=== PATIENT | female | born 1980 | race Caucasian/White ===

== ENCOUNTER 2016-04-24 12:31 | Emergency (ER) | payer MEDICAID ==
[~2016-04-24] VITALS: Ht 162.6 cm; Wt 124.5 kg
[~2016-04-24 12:31] MED LIST: HYDR-3011 PO; NAPR-260 PO; ONDA4TAB95 PO; PANT40TA4 PO; TRAM-40 PO; TRAM50TA2 PO
[2016-04-24 12:39] VITALS: Ht 162.6 cm; Wt 124.5 kg
[2016-04-24] MEDS ORDERED: ALBUTEROL 0.5% (NEB) 2.5 MG/0.5 ML AMP INH STA (15:08)
[2016-04-24] MEDS ORDERED: IPRATROPIUM (NEB) 0.5 MG/2.5 ML AMP INH STA (15:13)
[2016-04-24] MEDS ORDERED: predniSONE 20 MG TAB PO ONE (15:30)
--- NOTE | 2016-04-24 16:20 | RADRPT ---
PROCEDURE: Chest Radiograph. CLINICAL INDICATION: Cough TECHNIQUE: Single frontal chest radiograph. COMPARISON: Chest radiograph 11/16/2015 FINDINGS: The cardiomediastinal silhouette is within normal limits. No infiltrate or effusion is seen. Th e bones are intact. IMPRESSION: 1. Unremarkable chest radiograph. RPTAT: KK .Syd Del Angel MD, MD Date Time Electronically viewed and signed by .Syd Del Angel MD, on 04/24/2016 16:20 .B/
[2016-04-24] MEDS ORDERED: ALBU8.5H3 INH (17:37)
[2016-04-24] MEDS ORDERED: PRED20TA PO (17:37)
[2016-04-24] MEDS ORDERED: BENZ100C70 PO (17:37)
[2016-04-24] MEDS ORDERED: ELIM TOP (17:37)
[2016-04-24] MEDS ORDERED: BEN25 PO (17:50)
--- NOTE | 2016-04-24 17:50 | ERD ---
ER Documentation Chief Complaint Date/Time DATE: 04/24/16 TIME: 17:48 Chief Complaint CAME IN VIA INTAKE DUE TO FLU LIKE SYMPTOMS HPI 36-year-old female with a past medical history of thyroid problems presents to the ED complaining of fever, productive cough, body aches that started 3 days ago. Reports that she feels like she is wheezing. Denies any recent traveling. Denies any leg swelling. Denies any abdominal pain, chest pain, nausea, vomiting, diarrhea. States that at some point, she had some renal disease but has now resolved. Also reports that she has a itchy rash in the webs of her fingers, on her torso. Denies that other attacks have similar rashes. Denies any new use of soaps, detergents. Denies any exposure to pets or insects. Denies any smoking, alcohol use, drug use. ROS All systems reviewed and are negative except as per history of present illness. Medications Home Meds Active Scripts Diphenhydramine Hcl* (Benadryl*) 25 Mg Cap, 25 MG PO Q6, #30 CAP Prov:KRISTYN PERKINS PA-C 04/24/16 Permethrin* (Elimite*) 5% Cr, 1 APPLIC TOP ONCE, #2 TUB Leave cream on for 8 hours. Apply from the neck down to your toes. You may repeat applying the cream14 days after initial treatment if symptoms do not improve. Deje la crema en 8 horas. Aplicar desde el thad hasta los dedos del pie. Se puede repetir aplicando los cream14 d as despu s del tratamiento inicial si los s ntomas no mejoran. Prov:KRISTYN PERKINS PA-C 04/24/16 Benzonatate* (Tessalon Perle*) 100 Mg Capsule, 100 MG PO Q8H Y for COUGH, #20 CAP Prov:KRISTYN PERKINS PA-C 04/24/16 Albuterol Sulfate* (Proair HFA*) 8.5 Gm Hfa.aer.ad, 2 PUFF INH Q4, #1 INHALER Prov:KRISTYN PERKINS PA-C 04/24/16 Prednisone* (Prednisone*) 20 Mg Tab, 40 MG PO DAILY for 4 Days, TAB Prov:KRISTYN PERKINS PA-C 04/24/16 Naproxen* (Naprosyn*) 500 Mg Tablet, 500 MG PO BID Y for PAIN AND/OR INFLAMMATION, #20 TAB Prov:SKINNY PATEL PA-C 01/11/16 Tramadol HCl (Tramadol HCl) 50 Mg Tablet, 50 MG PO Q6 Y for PAIN, #10 TAB Prov:SKINNY PATEL PA-C 01/11/16 Tramadol Hcl* (Ultram*) 50 Mg Tablet, 100 MG PO Q6H Y for PAIN, #20 TAB Prov:CALVIN SWEET NP 11/26/15 Pantoprazole* (Pantoprazole*) 40 Mg Tablet.dr, 40 MG PO BID@06,18 for 30 Days Prov:CALVIN SWEET NP 11/26/15 Hydroxyzine Hcl* (Hydroxyzine Hcl*) 25 Mg Tablet, 25 MG PO Q8H Y for ITCHING, # 15 TAB Prov:IVAN WAN DO 11/17/15 Reported Medications Ondansetron Hcl* (Ondansetron Hcl*) 4 Mg Tablet, 4 MG PO TID Y for NAUSEA AND OR VOMITING, TAB 11/20/15 Allergies Allergies: Coded Allergies: Penicillins (Verified Allergy, Unknown, swelling, 11/20/15) PMhx/Soc History of Surgery: Yes (appendectomy,hernia repair x2) Anesthesia Reaction: No (can't have epidural anethesia, only general anthesia) Hx Neurological Disorder: No Hx Respiratory Disorders: No Hx Cardiac Disorders: No Hx Psychiatric Problems: No Hx Miscellaneous Medical Probl: No Hx Alcohol Use: No Hx Substance Use: No Hx Tobacco Use: No Physical Exam Vitals Vital Signs Date Time Temp Pulse Resp B/P Pulse Ox O2 Delivery O2 Flow Rate FiO2 04/24/16 15:45 88 20 97 21 04/24/16 12:39 98.4 85 18 123/82 97 Physical Exam Const: Yun-jvo-cmuehoqyb, well-nourished. In no acute distress. Head: Atraumatic, normocephalic Eyes: Normal Conjunctiva without injection. No purulent discharge. PERRL. EOMI ENT: Normal external ear. Ear canal without erythema. Tympanic membrane pearly valdes without effusion or bulging. Nasal canal clear with normal turbinates. Moist oropharynx without tonsillar exudates. Non-erythematous pharynx. Uvula midline. No drooling. No trismus. Neck: Full range of motion. No meningismus. No cervical lymphadenopathy. Resp: Expiratory wheezing noted. No rhonchi, rales, or crackles. No accessory muscle use. No retractions. Cardio: Regular rate and rhythm. No murmurs, rubs or gallops. Abd: Soft, non tender, non distended. Normal bowel sounds. No palpable masses. No rebound tenderness. No guarding. Skin: No petechiae or rashes Back: No midline tenderness. No CVA tenderness. Ext: No cyanosis, or edema. Neur: Awake and alert. Psych: Normal Mood and Affect Results 24 hrs Current Medications Medications (Trade) Dose Ordered Sig/Kanwal Route PRN Reason Start Time Stop Time Status Last Admin Dose Admin Albuterol (Proventil 0.5% (Neb)) 5 mg ONCE STAT INH 04/24/16 15:08 04/24/16 15:12 DC 04/24/16 16:00 Ipratropium [place] (Atrovent 0.02% (Neb)) 1 mg ONCE STAT INH 04/24/16 15:13 04/24/16 15:15 DC 04/24/16 16:00 Prednisone (Prednisone) 60 mg ONCE ONCE PO 04/24/16 15:30 04/24/16 15:31 DC 04/24/16 15:35 Procedures/MDM This is a 36-year-old female with a past medical history of thyroid problems since the ED complaining of flulike symptoms. Patient also is wheezing. A breathing treatment consisting of 5 mg albuterol, 1 mg Atrovent, prednisone was ordered to further treat patient with improvement. Chest x-ray was ordered to further evaluate patient. PROCEDURE: Chest Radiograph. CLINICAL INDICATION: Cough TECHNIQUE: Single frontal chest radiograph. COMPARISON: Chest radiograph 11/16/2015 FINDINGS: The cardiomediastinal silhouette is within normal limits. No infiltrate or effusion is seen. The bones are intact. IMPRESSION: 1. Unremarkable chest radiograph. This patient presents to the ED with symptoms consistent with a viral acute upper respiratory infection with wheezing. Patient is afebrile and has normal vital signs. Patient's physical exam include lungs which were clear to auscultation and a normal pulse oximetry. There is a low suspicion for pneumonia , pneumothorax, pulmonary embolism, epiglottitis, otitis media, otitis externa, viral/strep pharyngitis, sinusitis, peritonsillar abscess, mastoiditis, retropharyngeal abscess, meningitis, sepsis, acute abdomen or other emergent conditions. Fluids, rest, and symptomatic treatment are recommended for the management of patient's symptoms. Patient's rash was consistent with possible scabies. Other differential diagnosis include but is not limited to allergic contact dermatitis, urticaria, insect bites, cutaneous candidiasis, eczema, tinea infection, erythema multiforme, psoriasis. Low suspicion for SJS/TEN, sepsis, cellulitis, necrotizing fascitis, or other emergent conditions. Discharge medications: Permethrin, Benadryl, Tessalon Perles, pro-air, Prednisone Follow up with primary care physician in 1-2 days. Instructed patient to return to the ED sooner for any worsening symptoms. Patient's questions were answered. Patient understood and agreed with discharge plan. Patient discharged stable. Departure Diagnosis: Primary Impression: Cough Additional Impression: Wheezing Condition: Stable Patient Instructions: Uri, Viral W/ Wheezing (Adult) Referrals: [facility] YOU HAVE RECEIVED A MEDICAL SCREENING EXAM AND THE RESULTS INDICATE THAT YOU DO NOT HAVE A CONDITION THAT REQUIRES URGENT TREATMENT IN THE EMERGENCY DEPARTMENT. FURTHER EVALUATION AND TREATMENT OF YOUR CONDITION CAN WAIT UNTIL YOU ARE SEEN IN YOUR DOCTORS OFFICE WITHIN THE NEXT 1-2 DAYS. IT IS YOUR RESPONSIBILITY TO MAKE AN APPOINTMENT FOR FOLOW-UP CARE. IF YOU HAVE A PRIMARY DOCTOR --you should call your primary doctor and schedule an appointment IF YOU DO NOT HAVE A PRIMARY DOCTOR YOU CAN CALL OUR PHYSICIAN REFERRAL HOTLINE AT IF YOU CAN NOT AFFORD TO SEE A PHYSICIAN YOU CAN CHOSE FROM THE FOLLOWING [facility] [address] [facility] [address] [facility] [address] [facility] [address] [facility]. [facility] [address] [facility]. [facility]. [address] [facility] [facility] YOU HAVE RECEIVED A MEDICAL SCREENING EXAM AND THE RESULTS INDICATE THAT YOU DO NOT HAVE A CONDITION THAT REQUIRES URGENT TREATMENT IN THE EMERGENCY DEPARTMENT. FURTHER EVALUATION AND TREATMENT OF YOUR CONDITION CAN WAIT UNTIL YOU ARE SEEN IN YOUR DOCTORS OFFICE WITHIN THE NEXT 1-2 DAYS. IT IS YOUR RESPONSIBILITY TO MAKE AN APPOINTMENT FOR FOLOW-UP CARE. IF YOU HAVE A PRIMARY DOCTOR --you should call your primary doctor and schedule and appointment IF YOU DO NOT HAVE A PRIMARY DOCTOR YOU CAN CALL OUR PHYSICIAN REFERRAL HOTLINE AT . IF YOU CAN NOT AFFORD TO SEE A PHYSICIAN YOU CAN CHOSE FROM THE FOLLOWING [facility] INSTITUTIONS: [facility] [address] [place] [address] [facility] [address] [place] [address] [facility] + [facility] [address] [place] [address] [facility]RGENT [facility]/SPECIALTIES Additional Instructions: Llame al doctor MAANA y jennifer jahaira FAHEEM PARA DENTRO DE 1-2 WILLIAMSON.Dgale a la secretaria que nosotros le instruimos hacer esta faheem.Avise o llame si mcpherson condicin se empeora antes de la faheem. Regresa aqui si peor o no mejor. KRISTYN PERKINS PA-C Apr 24, 2016 17:50
== END 2016-04-24 17:54 | disposition home or self-care (01) ==
LOC: FTE 12:31
DX: R05 Cough (principal); R06.2 Wheezing
CPT/HCPCS: 71010; 94644; J7512; Z7502; Z7610

== ENCOUNTER 2016-04-28 15:27 | Emergency (ER) | END 2016-04-28 17:52 | disposition home or self-care (01) | DX: J06.9 Acute upper respiratory infection, unspecified (principal) ==

== ENCOUNTER 2016-06-12 14:21 | Emergency (ER) | payer MEDICAID ==
[~2016-06-12] VITALS: Ht 165.1 cm; Wt 125.0 kg
[~2016-06-12 14:21] MED LIST changes: +ACET500C5 PO; +ALBU8.5H3 INH; +AZIT250T94 PO; +BEN25 PO; +BENZ100C70 PO; +ELIM TOP; +PRED20TA PO
[2016-06-12 14:25] VITALS: Ht 165.1 cm; Wt 125.0 kg
[2016-06-12] MEDS ORDERED: morphine 4 MG/ML VIAL IV STA (15:12)
[2016-06-12] MEDS ORDERED: ONDANSETRON 4 MG INJ IV STA ×2 (15:12→19:31)
[2016-06-12 16:08] LABS: ADD SCAN DIFF NO
[2016-06-12 16:10] LABS: BASOPHILS % 0.4 % (0.0-2.0); EOSINOPHILS # 0.1 10^3/ul (0.0-0.5); EOSINOPHILS % 0.8 % (0.0-7.0); HEMOGLOBIN 13.7 g/dl (12.0-16.0); LYMPHOCYTES # 1.7 10^3/ul (0.8-2.9); LYMPHOCYTES % 17.7 % (15.0-51.0); MEAN CORPUSCULAR HGB CONC 31.9 g/dl (32.0-37.0); MEAN CORPUSCULAR VOLUME 81.6 fl (82.0-101.0); MEAN PLATELET VOLUME 10.5 fl (7.4-10.4); MONOCYTE # 0.7 10^3/ul (0.3-0.9); MONOCYTES % 7.6 % (0.0-11.0); NEUTROPHIL # 6.9 10^3/ul (1.6-7.5); NEUTROPHILS % 73.2 % (39.0-77.0); PLATELET COUNT 277 10^3/UL (140-415); RED BLOOD COUNT 5.27 10^6/ul (4.20-5.40); RED CELL DISTRIBUTION WIDTH 14.2 % (11.5-14.5); WHITE BLOOD COUNT 9.5 10^3/ul (4.8-10.8)
[2016-06-12 16:25] LABS: INR 0.99; PROTIME 13.1 Sec (12.2-14.2)
--- NOTE | 2016-06-12 16:25 | RADRPT ---
PROCEDURE: US Abdomen (right upper quadrant). CLINICAL INDICATION: Right upper quadrant abdomen pain. TECHNIQUE: Multiple real-time longitudinal and transverse images of the right upper quadrant of th e abdomen were acquired utilizing a curved array transducer. Images were reviewed on a high-resoluti on PACS workstation. COMPARISON: None FINDINGS: The liver is enlarged and diffusely increased in echogenicity. There is no focal hepatic lesion. Color Doppler and pulsed Doppler sonography demonstrate normal ant egrade flow in the portal vein. Gallstones are present in the gallbladder. There is no gallbladder wall thickening or fluid around the gallbladder. The bile ducts are normal with the common bile duct measuring 3.1 mm in diameter. The pancreas is not visualized due to overlying bowel gas. No free fluid is present. The right kidney measures 11.6 cm. There is normal echogenicity of the right kidney. There is no perinephric fluid collection. No hydronephrosis, mass, or calculus is seen. IMPRESSION: 1. Hepatomegaly. 2. Fatty metamorphosis of the liver. 3. Gallstones in the gallbladder. No evidence of cholecystitis. 4. Pancreas not visualized. 5. Otherwise unremarkable right upper quadrant abdomen ultrasound. RPTAT: QQ .Gamal Sorto MD, MD Date Time Electronically viewed and signed by .Gamal Sorto MD, on 06/12/2016 16:25 .R/
[2016-06-12 16:26] LABS: PARTIAL THROMBOPLASTIN TIME 30.6 Sec (25.0-35.0)
[2016-06-12 16:33] LABS: ALBUMIN 4.4 g/dl (3.3-4.9)
[2016-06-12 16:36] LABS: BILIRUBIN,INDIRECT 1.2 mg/dl (0-1.1); BILIRUBIN,TOTAL 1.2 mg/dl (0.2-1.3); CREATININE 0.79 mg/dl (0.44-1.00)
[2016-06-12 16:37] LABS: ALBUMIN/GLOBULIN RATIO 1.18; CALCIUM 9.4 mg/dl (8.4-10.2); TOTAL PROTEIN 8.1 g/dl (6.1-8.1)
[2016-06-12] MEDS ORDERED: SOD CHLORIDE 0.9% 100 ML ONE (16:59)
[2016-06-12] MEDS ORDERED: IOHEXOL 300MG/ML 150 ML BTL ONE (16:59)
[2016-06-12 17:14] LABS: ADD UMIC YES; URINE BILIRUBIN (Dip) NEGATIVE (NEGATIVE); URINE BLOOD (Dip) NEGATIVE (NEGATIVE); URINE COLOR LT. YELLOW (YELLOW); URINE GLUCOSE (Dip) NEGATIVE (NEGATIVE); URINE KETONES (Dip) NEGATIVE (NEGATIVE); URINE LEUKOCYTE ESTERASE (Dip) TRACE (NEGATIVE); URINE NITRITE (Dip) NEGATIVE (NEGATIVE); URINE TOTAL PROTEIN (Dip) NEGATIVE (NEGATIVE); URINE UROBILINOGEN (Dip) 0.2 E.U./dL (0.1-1.0)
--- NOTE | 2016-06-12 17:22 | ERD ---
ER Documentation Chief Complaint Date/Time DATE: 06/12/16 TIME: 17:18 Chief Complaint RUQ ABDOMINAL WITH N/V HPI This patient is a 36-year-old female with past medical history of appendicitis with appendectomy, gallstones, hernia, ovarian tumors presenting to the emergency department for right upper quadrant pain ongoing intermittently for the past 7 days. The patient went to [facility] and was seen in the ER 4 days ago diagnosed with gallstones. There is no cholecystitis at that time. The patient has had intermittent fevers, 2 episodes of vomiting today, but no other symptoms reported. The patient has been taking [place] at home with mild relief of symptoms. ROS All systems reviewed and are negative except as per history of present illness. Medications Home Meds Active Scripts Ondansetron (Ondansetron Odt) 4 Mg Tab.rapdis, 4 MG PO Q6H Y for NAUSEA AND/OR VOMITING, #10 TAB Prov:TRINIDAD WILLIS PA-C 06/12/16 Dicyclomine Hcl* (Bentyl*) 10 Mg Capsule, 10 MG PO BID, #20 CAP Prov:TRINIDAD WILLIS PA-C 06/12/16 Acetaminophen* (Tylophen*) 500 Mg Capsule, 1 CAP PO Q6H Y for PAIN AND OR ELEVATED TEMP, #15 CAP Prov:SANCHEZ CASTELLANOS MD 04/28/16 Azithromycin* (Zithromax*) 250 Mg Tablet, 250 MG PO .ZPACK DIRECTED, #6 TAB TAKE 500 MG (2 TABS) THE FIRST DAY THEN 250 MG (1 TAB) DAYS 2-5 Prov:SANCHEZ CASTELLANOS MD 04/28/16 Diphenhydramine Hcl* (Benadryl*) 25 Mg Cap, 25 MG PO Q6, #30 CAP Prov:KRISTYN PERKINS PA-C 04/24/16 Permethrin* (Elimite*) 5% Cr, 1 APPLIC TOP ONCE, #2 TUB Leave cream on for 8 hours. Apply from the neck down to your toes. You may repeat applying the cream14 days after initial treatment if symptoms do not improve. Deje la crema en 8 horas. Aplicar desde el thad hasta los dedos del pie. Se puede repetir aplicando los cream14 d as despu s del tratamiento inicial si los s ntomas no mejoran. Prov:KRISTYN PERKINS PA-C 04/24/16 Benzonatate* (Tessalon Perle*) 100 Mg Capsule, 100 MG PO Q8H Y for COUGH, #20 CAP Prov:KRISTYN PERKINS PA-C 04/24/16 Albuterol Sulfate* (Proair HFA*) 8.5 Gm Hfa.aer.ad, 2 PUFF INH Q4, #1 INHALER Prov:KRISTYN PERKINS PA-C 04/24/16 Prednisone* (Prednisone*) 20 Mg Tab, 40 MG PO DAILY for 4 Days, TAB Prov:KRISTYN PERKINS PA-C 04/24/16 Naproxen* (Naprosyn*) 500 Mg Tablet, 500 MG PO BID Y for PAIN AND/OR INFLAMMATION, #20 TAB Prov:SKINNY PATEL PA-C 01/11/16 Tramadol HCl (Tramadol HCl) 50 Mg Tablet, 50 MG PO Q6 Y for PAIN, #10 TAB Prov:SKINNY PATEL PA-C 01/11/16 Tramadol Hcl* (Ultram*) 50 Mg Tablet, 100 MG PO Q6H Y for PAIN, #20 TAB Prov:CALVIN SWEET NP 11/26/15 Pantoprazole* (Pantoprazole*) 40 Mg Tablet.dr, 40 MG PO BID@06,18 for 30 Days Prov:CALVIN SWEET NP 11/26/15 Hydroxyzine Hcl* (Hydroxyzine Hcl*) 25 Mg Tablet, 25 MG PO Q8H Y for ITCHING, # 15 TAB Prov:IVAN WAN DO 11/17/15 Reported Medications Ondansetron Hcl* (Ondansetron Hcl*) 4 Mg Tablet, 4 MG PO TID Y for NAUSEA AND OR VOMITING, TAB 11/20/15 Allergies Allergies: Coded Allergies: Penicillins (Verified Allergy, Unknown, swelling, 06/12/16) PMhx/Soc History of Surgery: Yes (appendectomy,hernia repair x2) Anesthesia Reaction: No (can't have epidural anethesia, only general anthesia) Hx Neurological Disorder: No Hx Respiratory Disorders: No Hx Cardiac Disorders: No Hx Psychiatric Problems: No Hx Miscellaneous Medical Probl: No Hx Alcohol Use: No Hx Substance Use: No Hx Tobacco Use: No Smoking Status: Never smoker FmHx Noncontributory for chief complaint Physical Exam Vitals Vital Signs Date Time Temp Pulse Resp B/P Pulse Ox O2 Delivery O2 Flow Rate FiO2 06/12/16 18:44 62 17 108/61 98 Room Air 06/12/16 14:25 99.5 86 20 127/73 96 Physical Exam Const: The patient appears to be in acute pain. Head: Atraumatic Eyes: Normal Conjunctiva ENT: Normal External Ears, Nose and Mouth. Neck: Full range of motion..~ No meningismus. Resp: Clear to auscultation bilaterally Cardio: Regular rate and rhythm, no murmurs Abd: Morbidly obese abdomen, soft, diffuse tenderness to palpation but no rebound tenderness or guarding, non distended. Normal bowel sounds Skin: No petechiae or rashes Back: No midline or flank tenderness Ext: No cyanosis, or edema Neur: Awake and alert Psych: Normal Mood and Affect Result Diagram: 06/12/16 1540 06/12/16 1540 Results 24 hrs Laboratory Tests Test 06/12/16 15:40 06/12/16 16:26 White Blood Count 9.510^3/ul Red Blood Count 5.2710^6/ul Hemoglobin 13.7g/dl Hematocrit 43.0% Mean Corpuscular Volume 81.6fl Mean Corpuscular Hemoglobin 26.0pg Mean Corpuscular Hemoglobin Concent 31.9g/dl Red Cell Distribution Width 14.2% Platelet Count 80096^3/UL Mean Platelet Volume 10.5fl Neutrophils % 73.2% Lymphocytes % 17.7% Monocytes % 7.6% Eosinophils % 0.8% Basophils % 0.4% Nucleated Red Blood Cells % 0.0/100WBC Neutrophils # 6.910^3/ul Lymphocytes # 1.710^3/ul Monocytes # 0.710^3/ul Eosinophils # 0.110^3/ul Basophils # 0.010^3/ul Nucleated Red Blood Cells # 0.010^3/ul Prothrombin Time 13.1Sec Prothrombin Time Ratio 1.0 INR International Normalized Ratio 0.99 Activated Partial Thromboplast Time 30.6Sec Sodium Level 140mmol/L Potassium Level 4.0mmol/L Chloride Level 105mmol/L Carbon Dioxide Level 23mmol/L Anion Gap 16 Blood Urea Nitrogen 14mg/dl Creatinine 0.79mg/dl Glucose Level 92mg/dl Calcium Level 9.4mg/dl Total Bilirubin 1.2mg/dl Direct Bilirubin 0.00mg/dl Indirect Bilirubin 1.2mg/dl Aspartate Amino Transf (AST/SGOT) 91IU/L Alanine Aminotransferase (ALT/SGPT) 112IU/L Alkaline Phosphatase 98IU/L Total Protein 8.1g/dl Albumin 4.4g/dl Globulin 3.70g/dl Albumin/Globulin Ratio 1.18 Lipase 68U/L Urine Color LT. YELLOW Urine Clarity CLEAR Urine pH 5.5 Urine Specific [place] >=1.030 Urine Ketones NEGATIVE Urine Nitrite NEGATIVE Urine Bilirubin NEGATIVE Urine Urobilinogen 0.2 E.U./dL Urine Leukocyte Esterase TRACE Urine Microscopic RBC 0-2/HPF Urine Microscopic WBC 2-5/HPF Urine Squamous Epithelial Cells MANY Urine Bacteria OCCASIONAL Urine Hemoglobin NEGATIVE Urine Glucose NEGATIVE% Urine Total Protein NEGATIVE Current Medications Medications (Trade) Dose Ordered Sig/Kanwal Route PRN Reason Start Time Stop Time Status Last Admin Dose Admin Morphine Sulfate (morphine) 4 mg ONCE STAT IV 06/12/16 15:12 06/12/16 15:17 DC 06/12/16 15:51 Ondansetron HCl (Zofran Inj) 4 mg ONCE STAT IV 06/12/16 15:12 06/12/16 15:17 DC 06/12/16 15:51 IV Flush 10 ml 10 ml STK-MED ONCE .ROUTE 06/12/16 16:59 06/12/16 17:00 DC Sodium Chloride (NS) 100 ml @ ud STK-MED ONCE .ROUTE 06/12/16 16:59 06/12/16 17:00 DC Iohexol (Omnipaque 300mg/ ml) 150 ml STK-MED ONCE .ROUTE 06/12/16 16:59 06/12/16 17:00 DC Diclofenac Sodium (Dyloject) 37.5 mg ONCE STAT IV 06/12/16 18:26 06/12/16 18:27 DC 06/12/16 18:31 Hydromorphone HCl (Dilaudid) 1 mg ONCE STAT IV 06/12/16 18:48 06/12/16 18:49 DC 06/12/16 19:01 Dicyclomine HCl (Bentyl) 20 mg ONCE ONCE IM 06/12/16 19:00 06/12/16 19:01 DC 06/12/16 19:01 Ondansetron HCl (Zofran Inj) 4 mg ONCE STAT IV 06/12/16 19:31 06/12/16 19:32 DC 06/12/16 19:38 Procedures/MDM EMERGENCY DEPARTMENT COURSE / MEDICAL DECISION MAKING: This is a 36-year-old female who comes to the emergency room secondary to complaints of right upper quadrant pain. The patient was given IV morphine, IV Dilaudid, Dyloject, Bentyl IM in the department. On re-evaluation, the patient was feeling improved. Lab results reviewed and showed slightly elevated AST and ALT which is consistent with fatty liver. No other acute significant abnormalities. Radiology: PROCEDURE: CT abdomen and pelvis without intravenous contrast. CLINICAL INDICATION: Abdominal pain. Status post appendectomy. TECHNIQUE: CT of the abdomen/pelvis was performed utilizing axial images with reconstructions in sagittal and coronal planes. The administered radiation dose is CTDI 23.7 mGy, DLP 1359.63 mGy-cm. COMPARISON: Noncontrast CT of the abdomen/pelvis from November 20, 2015. FINDINGS: Lung bases: There is a stable 6 mm right lower lobe nodule. There are a few bilateral subpleural nodules as well as associated minimal atelectasis/ scarring. The heart is normal size without pericardial effusion. CT ABDOMEN: Evaluation of the abdominal viscera is limited without intravenous contrast. Gastrointestinal tract: There is no bowel obstruction. The appendix is not visualized most compatible with history of appendectomy. No abnormal colonic wall thickening is identified.There is no pneumoperitoneum. Liver: The liver is mildly prominent with hepatic fatty infiltration. There is no intrahepatic ductal dilatation. Gallbladder: The gallbladder is grossly unremarkable. Pancreas: The pancreas is grossly unremarkable. Spleen: The spleen is normal in size. Kidneys: The kidneys are normal in size and contour.No renal calculi identified.There is no evidence of hydronephrosis. Adrenal glands: The bilateral adrenal glands are unremarkable. Retroperitoneum: There is no retroperitoneal adenopathy.The aorta is normal in caliber. There is a stable small fat containing right lower quadrant anterior abdominal wall hernia with with adjacent scarring which may be related to prior appendectomy. CT PELVIS: Pelvic organs: The uterus is present. Bladder: The bladder is unremarkable. There is no pelvic free fluid.No pelvic adenopathy is identified. Osseous structures: No destructive lytic or blastic osseous lesion is identified. IMPRESSION: Evaluation of the abdominal viscera is limited without intravenous contrast. No significant change. 1. No acute abdominal pathology. 2. Status post appendectomy. 3. Stable lower quadrant small fat containing incisional hernia with associated scarring. 4. Hepatic fatty infiltration. Correlate with LFTs. 5. Stable 6 mm right lower lobe nodule. There are a few bilateral subpleural nodules as well as associated minimal atelectasis/scarring. Dedicated noncontrast CT of the chest is recommended for further evaluation as well as followup per Fleischner criteria. Further findings as detailed above. RPTAT: PP .Frantz Santana MD, Date Time Electronically viewed and signed by .Frantz Santana MD, MD on 06/12/2016 17:56 .F/ CC: TRINIDAD WILLIS PA-C PROCEDURE: US Abdomen (right upper quadrant). CLINICAL INDICATION: Right upper quadrant abdomen pain. TECHNIQUE: Multiple real-time longitudinal and transverse images of the right upper quadrant of the abdomen were acquired utilizing a curved array transducer. Images were reviewed on a high-resolution PACS workstation. COMPARISON: None FINDINGS: The liver is enlarged and diffusely increased in echogenicity. There is no focal hepatic lesion. Color Doppler and pulsed Doppler sonography demonstrate normal antegrade flow in the portal vein. Gallstones are present in the gallbladder. There is no gallbladder wall thickening or fluid around the gallbladder. The bile ducts are normal with the common bile duct measuring 3.1 mm in diameter. The pancreas is not visualized due to overlying bowel gas. No free fluid is present. The right kidney measures 11.6 cm. There is normal echogenicity of the right kidney. There is no perinephric fluid collection. No hydronephrosis, mass, or calculus is seen. IMPRESSION: 1. Hepatomegaly. 2. Fatty metamorphosis of the liver. 3. Gallstones in the gallbladder. No evidence of cholecystitis. 4. Pancreas not visualized. 5. Otherwise unremarkable right upper quadrant abdomen ultrasound. RPTAT: QQ .Sanchez Sorto MD, Date Time Electronically viewed and signed by .Sanchez Sorto MD, MD on 06/12/2016 16:25 .R/ CC: TRINIDAD WILLIS PA-C The primary diagnosis is gallstones. Secondary diagnosis is abdominal pain. I have low suspicion for cholecystitis, bowel obstruction, septicemia, or other emergent conditions at this time. Discharge: I have discussed the lab results and diagnostic findings with the patient and answered any questions or concerns. The patient was discharged with a prescription for Bentyl and Zofran. The patient was advised to followup with their PMD in 1-2 days and to return to the Emergency Department if there are any new or worsening symptoms. The patient understood and agreed with the diagnosis, treatment and plan. The patient is stable for discharge at this time. Departure Diagnosis: Primary Impression: Gall stones Additional Impression: Abdominal pain Abdominal location: generalized Qualified Code: R10.84 - Generalized abdominal pain Condition: Stable Patient Instructions: Abdominal Pain, Gallstones [facility]errals: [facility] Additional Instructions: No mas mejor en 2-3 reddy, regresar. Mas peor en 24 horas, regresear rapidamente. Ir a doctor primario in 5-7 reddy. Usar instrucciones cuando lluvia medicamento. TRINIDAD WILLIS PA-C June 12, 2016 17:22
--- NOTE | 2016-06-12 17:57 | RADRPT ---
PROCEDURE: CT abdomen and pelvis without intravenous contrast. CLINICAL INDICATION: Abdominal pain. Status post appendectomy. TECHNIQUE: CT of the abdomen/pelvis was performed utilizing axial images with reconstructions in s agittal and coronal planes. The administered radiation dose is CTDI 23.7 mGy, DLP 1359.63 mGy-cm. COMPARISON: Noncontrast CT of the abdomen/pelvis from November 20, 2015. FINDINGS: Lung bases: There is a stable 6 mm right lower lobe nodule. There are a few bilateral subpleural no dules as well as associated minimal atelectasis/scarring. The heart is normal size without pericard ial effusion. CT ABDOMEN: Evaluation of the abdominal viscera is limited without intravenous contrast. Gastrointestinal tract: There is no bowel obstruction. The appendix is not visualized most compatibl e with history of appendectomy. No abnormal colonic wall thickening is identified.There is no pneum operitoneum. Liver: The liver is mildly prominent with hepatic fatty infiltration. There is no intrahepatic duct al dilatation. Gallbladder: The gallbladder is grossly unremarkable. Pancreas: The pancreas is grossly unremarkable. Spleen: The spleen is normal in size. Kidneys: The kidneys are normal in size and contour.No renal calculi identified.There is no evidence of hydronephrosis. Adrenal glands: The bilateral adrenal glands are unremarkable. Retroperitoneum: There is no retroperitoneal adenopathy.The aorta is normal in caliber. There is a stable small fat containing right lower quadrant anterior abdominal wall hernia with with adjacent scarring which may be related to prior appendectomy. CT PELVIS: Pelvic organs: The uterus is present. Bladder: The bladder is unremarkable. There is no pelvic free fluid.No pelvic adenopathy is identified. Osseous structures: No destructive lytic or blastic osseous lesion is identified. IMPRESSION: Evaluation of the abdominal viscera is limited without intravenous contrast. No significant change. 1. No acute abdominal pathology. 2. Status post appendectomy. 3. Stable lower quadrant small fat containing incisional hernia with associated scarring. 4. Hepatic fatty infiltration. Correlate with LFTs. 5. Stable 6 mm right lower lobe nodule. There are a few bilateral subpleural nodules as well as as sociated minimal atelectasis/scarring. Dedicated noncontrast CT of the chest is recommended for fur ther evaluation as well as followup per Fleischner criteria. Further findings as detailed above. RPTAT: PP .Frantz Santana MD, MD Date Time Electronically viewed and signed by .Frantz Sanatna MD, MD on 06/12/2016 17:56 .F/
[2016-06-12] MEDS ORDERED: DICLOFENAC SODIUM 37.5 MG/ML VIAL IV STA (18:26)
[2016-06-12 18:35] LABS: BACTERIA,URINE OCCASIONAL; SQUAMOUS EPITHELIAL CELL,UR MANY; URINE RBCS 0-2 /HPF (0)
[2016-06-12 18:44] VITALS: BP 108/61; PULSE 62; RESP 17
[2016-06-12] MEDS ORDERED: HYDROmorphONE 1 MG/ML SYG IV STA (18:48)
[2016-06-12] MEDS ORDERED: DICYCLOMINE 20 MG INJ IM ONE (19:00)
[2016-06-12] MEDS ORDERED: DICY10CA60 PO (19:45)
[2016-06-12] MEDS ORDERED: ONDA4TAB14 PO (20:09)
== END 2016-06-12 20:25 | disposition home or self-care (01) ==
LOC: FTE 14:21
DX: K80.20 Calculus of gallbladder without cholecystitis without obstruction (principal); R10.84 Generalized abdominal pain; R11.2 Nausea with vomiting, unspecified
CPT/HCPCS: 36415; 74176; 76705; 80053; 81001; 83690; 85025; 85610; 85730; 87086; 96372; 96374; 96375; 96376; J0500; J1170; J2270; J2405; Q9967; Z7502; Z7610; 81003

== ENCOUNTER 2016-08-05 11:26 | Emergency (ER) | payer MEDICAID ==
[~2016-08-05] VITALS: Wt 121.5 kg
[~2016-08-05 11:26] MED LIST changes: +DICY10CA60 PO; +ONDA4TAB14 PO
[2016-08-05] MEDS ORDERED: FAMOTIDINE 20 MG INJ IV STA (12:02)
[2016-08-05] MEDS ORDERED: ONDANSETRON 4 MG INJ IV STA ×2 (12:02→13:42)
[2016-08-05] MEDS ORDERED: morphine 4 MG/ML VIAL IV STA (12:02)
[2016-08-05 12:34] LABS: ADD SCAN DIFF NO
[2016-08-05 12:36] LABS: BASOPHILS % 0.3 % (0.0-2.0); EOSINOPHILS # 0.1 10^3/ul (0.0-0.5); EOSINOPHILS % 0.9 % (0.0-7.0); HEMATOCRIT 41.6 % (37.0-47.0); HEMOGLOBIN 13.6 g/dl (12.0-16.0); LYMPHOCYTES # 1.7 10^3/ul (0.8-2.9); LYMPHOCYTES % 17.1 % (15.0-51.0); MEAN CORPUSCULAR HEMOGLOBIN 26.5 pg (29.0-33.0); MEAN CORPUSCULAR HGB CONC 32.7 g/dl (32.0-37.0); MEAN CORPUSCULAR VOLUME 80.9 fl (82.0-101.0); MEAN PLATELET VOLUME 9.8 fl (7.4-10.4); MONOCYTE # 0.6 10^3/ul (0.3-0.9); NEUTROPHIL # 7.5 10^3/ul (1.6-7.5); NEUTROPHILS % 75.3 % (39.0-77.0); PLATELET COUNT 285 10^3/UL (140-415); RED BLOOD COUNT 5.14 10^6/ul (4.20-5.40); RED CELL DISTRIBUTION WIDTH 14.1 % (11.5-14.5); WHITE BLOOD COUNT 9.9 10^3/ul (4.8-10.8)
[2016-08-05 12:53] LABS: ALBUMIN 4.8 g/dl (3.3-4.9); ALBUMIN/GLOBULIN RATIO 1.37; BILIRUBIN,INDIRECT 0.7 mg/dl (0-1.1); BILIRUBIN,TOTAL 0.7 mg/dl (0.2-1.3); CALCIUM 9.6 mg/dl (8.4-10.2); CREATININE 0.74 mg/dl (0.44-1.00); POTASSIUM 4.1 mmol/L (3.5-5.1); TOTAL PROTEIN 8.3 g/dl (6.1-8.1)
[2016-08-05 13:22] LABS: ADD UMIC YES; UR ASCORBIC ACID NEGATIVE (NEGATIVE); UR BACTERIA FEW /HPF (NONE SEEN); UR BILIRUBIN (Dip) NEGATIVE (NEGATIVE); UR BLOOD (Dip) NEGATIVE (NEGATIVE); UR CLARITY SLIGHTLY CLOUDY (CLEAR); UR COLOR YELLOW (YELLOW); UR GLUCOSE (Dip) NEGATIVE (NEGATIVE); UR KETONES (Dip) NEGATIVE (NEGATIVE); UR LEUKOCYTE ESTERASE (Dip) TRACE Leu/ul (NEGATIVE); UR MUCUS FEW /HPF (NONE SEEN); UR NITRITE (Dip) NEGATIVE (NEGATIVE); UR RBC 0 /HPF (0-5); UR SPECIFIC GRAVITY (Dip) 1.029 (1.003-1.030); UR SQUAMOUS EPITHELIAL CELL FEW /HPF (FEW); UR TOTAL PROTEIN (Dip) NEGATIVE (NEGATIVE); UR UROBILINOGEN (Dip) NEGATIVE (NEGATIVE)
--- NOTE | 2016-08-05 13:27 | RADRPT ---
PROCEDURE: US Abdomen Complete. CLINICAL INDICATION: Abdominal Pain TECHNIQUE: Multiple real-time images were acquired of the patient's abdomen and retroperitoneum ut ilizing a high resolution transducer. COMPARISON: Gallbladder ultrasound from 06/12/2016 FINDINGS: The liver measures 22.3 cm and demonstrates moderately increased echogenicity. There is no intrahepa tic biliary ductal dilatation. The extrahepatic common bile duct measures 4 mm. The main portal vein is patent with proper directional flow. The gallbladder is without stones, wall thickening, or pericholecystic fluid. The pancreas is not visualized. The right kidney measures 10.7 x 4.1 x 7.9 cm. There are no right renal calculi or hydronephrosis. The visualized abdominal aorta and IVC are grossly unremarkable. IMPRESSION: Severe hepatomegaly with moderate fatty infiltration. No cholelithiasis or acute cholecystitis. Normal CBD. Of note, gallstones were identified on the p rior ultrasound study from 06/12/2016. RPTAT: EE Physician Pat Date Time Electronically viewed and signed by Physician Pat on 08/05/2016 13:26 /
[2016-08-05] MEDS ORDERED: HYDROmorphONE 1 MG/ML SYG IV STA (13:42)
--- NOTE | 2016-08-05 13:42 | ERD ---
ER Documentation Chief Complaint Date/Time DATE: 08/05/16 TIME: 13:37 Chief Complaint ABD PAIN, N/V/D, HX OF GALL STONES HPI This 36-year-old female who presents the emergency department today complaining of abdominal pain for the past 3 days that radiates to her back. States she also has some nausea and vomiting. Denies any fevers or chills. ROS All systems reviewed and are negative except as per history of present illness. Medications Home Meds Active Scripts Diphenhydramine Hcl* (Benadryl*) 25 Mg Cap, 25 MG PO Q6, #30 CAP Prov:RUBENS HUTCHINSON PA-C 08/05/16 Acetaminophen* (Tylophen*) 500 Mg Capsule, 1 CAP PO Q6H Y for PAIN AND OR ELEVATED TEMP, #30 CAP Prov:RUBENS HUTCHINSON PA-C 08/05/16 Electrolyte,Oral (Pedialyte) 1,000 Ml Solution, 100 ML PO Q6 Y for DIARRHEA, # 1000 ML Prov:RUBENS HUTCHINSON PA-C 08/05/16 Ondansetron Hcl* (Zofran*) 4 Mg Tablet, 4 MG PO Q6H for NAUSEA AND/OR VOMITING, #30 TAB Prov:RUBENS HUTCHINSON PA-C 08/05/16 Dicyclomine Hcl* (Bentyl*) 10 Mg Capsule, 10 MG PO QID, #30 CAP Prov:RUBENS HUTCHINSON PA-C 08/05/16 Ondansetron (Ondansetron Odt) 4 Mg Tab.rapdis, 4 MG PO Q6H Y for NAUSEA AND/OR VOMITING, #10 TAB Prov:TRINIDAD WILLIS PA-C 06/12/16 Dicyclomine Hcl* (Bentyl*) 10 Mg Capsule, 10 MG PO BID, #20 CAP Prov:TRINIDAD WILLIS PA-C 06/12/16 Acetaminophen* (Tylophen*) 500 Mg Capsule, 1 CAP PO Q6H Y for PAIN AND OR ELEVATED TEMP, #15 CAP Prov:SANCHEZ CASTELLANOS MD 04/28/16 Azithromycin* (Zithromax*) 250 Mg Tablet, 250 MG PO .PEARL DIRECTED, #6 TAB TAKE 500 MG (2 TABS) THE FIRST DAY THEN 250 MG (1 TAB) DAYS 2-5 Prov:SANCHEZ CASTELLANOS MD 04/28/16 Diphenhydramine Hcl* (Benadryl*) 25 Mg Cap, 25 MG PO Q6, #30 CAP Prov:KRISTYN PERKINS PA-C 04/24/16 Permethrin* (Elimite*) 5% Cr, 1 APPLIC TOP ONCE, #2 TUB Leave cream on for 8 hours. Apply from the neck down to your toes. You may repeat applying the cream14 days after initial treatment if symptoms do not improve. Deje la crema en 8 horas. Aplicar desde el thad hasta los dedos del pie. Se puede repetir aplicando los cream14 d as despu s del tratamiento inicial si los s ntomas no mejoran. Prov:KRISTYN PERKINS PA-C 04/24/16 Benzonatate* (Tessalon Perle*) 100 Mg Capsule, 100 MG PO Q8H Y for COUGH, #20 CAP Prov:KRISTYN PERKINS PA-C 04/24/16 Albuterol Sulfate* (Proair HFA*) 8.5 Gm Hfa.aer.ad, 2 PUFF INH Q4, #1 INHALER Prov:KRISTYN PERKINS PA-C 04/24/16 Prednisone* (Prednisone*) 20 Mg Tab, 40 MG PO DAILY for 4 Days, TAB Prov:KRISTYN PERKINS PA-C 04/24/16 Naproxen* (Naprosyn*) 500 Mg Tablet, 500 MG PO BID Y for PAIN AND/OR INFLAMMATION, #20 TAB Prov:SKINNY PATEL PA-C 01/11/16 Tramadol HCl (Tramadol HCl) 50 Mg Tablet, 50 MG PO Q6 Y for PAIN, #10 TAB Prov:SKINNY PATEL PA-C 01/11/16 Tramadol Hcl* (Ultram*) 50 Mg Tablet, 100 MG PO Q6H Y for PAIN, #20 TAB Prov:CALVIN SWEET NP 11/26/15 Pantoprazole* (Pantoprazole*) 40 Mg Tablet.dr, 40 MG PO BID@06,18 for 30 Days Prov:CALVIN SWEET NP 11/26/15 Hydroxyzine Hcl* (Hydroxyzine Hcl*) 25 Mg Tablet, 25 MG PO Q8H Y for ITCHING, # 15 TAB Prov:IVAN WAN DO 11/17/15 Reported Medications Ondansetron Hcl* (Ondansetron Hcl*) 4 Mg Tablet, 4 MG PO TID Y for NAUSEA AND OR VOMITING, TAB 11/20/15 Allergies Allergies: Coded Allergies: Penicillins (Verified Allergy, Unknown, swelling, 06/12/16) PMhx/Soc History of Surgery: Yes (appendectomy,hernia repair x2) Anesthesia Reaction: No (can't have epidural anethesia, only general anthesia) Hx Neurological Disorder: No Hx Respiratory Disorders: No Hx Cardiac Disorders: No Hx Psychiatric Problems: No Hx Miscellaneous Medical Probl: No Hx Alcohol Use: No Hx Substance Use: No Hx Tobacco Use: No Physical Exam Vitals Vital Signs Date Time Temp Pulse Resp B/P Pulse Ox O2 Delivery O2 Flow Rate FiO2 08/05/16 11:30 98.3 81 17 130/89 97 Physical Exam Const: Obese, no acute distress Head: Atraumatic Eyes: Normal Conjunctiva ENT: Normal External Ears, Nose and Mouth. Neck: Full range of motion..~ No meningismus. Resp: Clear to auscultation bilaterally Cardio: Regular rate and rhythm, no murmurs Abd: Soft, epigastric and right upper quadrant tenderness non distended. Normal bowel sounds Skin: No petechiae or rashes Back: No midline or flank tenderness Ext: No cyanosis, or edema Neur: Awake and alert Psych: Normal Mood and Affect Result Diagram: 08/05/16 1220 08/05/16 1220 Results 24 hrs Laboratory Tests Test 08/05/16 12:20 08/05/16 13:00 White Blood Count 9.910^3/ul Red Blood Count 5.1410^6/ul Hemoglobin 13.6g/dl Hematocrit 41.6% Mean Corpuscular Volume 80.9fl Mean Corpuscular Hemoglobin 26.5pg Mean Corpuscular Hemoglobin Concent 32.7g/dl Red Cell Distribution Width 14.1% Platelet Count 88751^3/UL Mean Platelet Volume 9.8fl Neutrophils % 75.3% Lymphocytes % 17.1% Monocytes % 6.0% Eosinophils % 0.9% Basophils % 0.3% Nucleated Red Blood Cells % 0.0/100WBC Neutrophils # 7.510^3/ul Lymphocytes # 1.710^3/ul Monocytes # 0.610^3/ul Eosinophils # 0.110^3/ul Basophils # 0.010^3/ul Nucleated Red Blood Cells # 0.010^3/ul Sodium Level 144mmol/L Potassium Level 4.1mmol/L Chloride Level 108mmol/L Carbon Dioxide Level 23mmol/L Anion Gap 17 Blood Urea Nitrogen 14mg/dl Creatinine 0.74mg/dl Glucose Level 109mg/dl Calcium Level 9.6mg/dl Total Bilirubin 0.7mg/dl Direct Bilirubin 0.00mg/dl Indirect Bilirubin 0.7mg/dl Aspartate Amino Transf (AST/SGOT) 60IU/L Alanine Aminotransferase (ALT/SGPT) 82IU/L Alkaline Phosphatase 100IU/L Total Protein 8.3g/dl Albumin 4.8g/dl Globulin 3.50g/dl Albumin/Globulin Ratio 1.37 Lipase 121U/L Urine Color YELLOW Urine Clarity SLIGHTLY CLOUDY Urine pH 5.0 Urine Specific [place] 1.029 Urine Ketones NEGATIVEmg/dL Urine Nitrite NEGATIVEmg/dL Urine Bilirubin NEGATIVEmg/dL Urine Urobilinogen NEGATIVEmg/dL Urine Leukocyte Esterase TRACELeu/ul Urine Microscopic RBC 0/HPF Urine Microscopic WBC 4/HPF Urine Squamous Epithelial Cells FEW/HPF Urine Bacteria FEW/HPF Urine Mucus FEW/HPF Urine Hemoglobin NEGATIVEmg/dL Urine Glucose NEGATIVEmg/dL Urine Total Protein NEGATIVEmg/dl Current Medications Medications (Trade) Dose Ordered Sig/Kanwal Route PRN Reason Start Time Stop Time Status Last Admin Dose Admin Morphine Sulfate (morphine) 4 mg ONCE STAT IV 08/05/16 12:02 08/05/16 12:06 DC 08/05/16 12:20 Ondansetron HCl (Zofran Inj) 4 mg ONCE STAT IV 08/05/16 12:02 08/05/16 12:06 DC 08/05/16 12:20 Famotidine (Pepcid Iv) 20 mg ONCE STAT IV 08/05/16 12:02 08/05/16 12:06 DC 08/05/16 12:20 Hydromorphone HCl (Dilaudid) 1 mg ONCE STAT IV 08/05/16 13:42 08/05/16 13:43 DC 08/05/16 13:50 Ondansetron HCl (Zofran Inj) 4 mg ONCE STAT IV 08/05/16 13:42 08/05/16 13:43 DC 08/05/16 13:50 Diphenhydramine HCl (Benadryl) 50 mg ONCE ONCE IV 08/05/16 15:00 08/05/16 15:01 DC 08/05/16 14:53 DIAGNOSTIC IMAGING REPORT Patient: SIERRA RAMOS : 1980 Age: 36 Sex: F MR #: [id number] DOS: 08/05/16 1202 Ordering MD: RUBENS HUTCHINSON PA-C Location: [facility] Room/Bed: PROCEDURE: US Abdomen Complete. CLINICAL INDICATION: Abdominal Pain TECHNIQUE: Multiple real-time images were acquired of the patient's abdomen and retroperitoneum utilizing a high resolution transducer. COMPARISON: Gallbladder ultrasound from 06/12/2016 FINDINGS: The liver measures 22.3 cm and demonstrates moderately increased echogenicity. There is no intrahepatic biliary ductal dilatation. The extrahepatic common bile duct measures 4 mm. The main portal vein is patent with proper directional flow. The gallbladder is without stones, wall thickening, or pericholecystic fluid. The pancreas is not visualized. The right kidney measures 10.7 x 4.1 x 7.9 cm. There are no right renal calculi or hydronephrosis. The visualized abdominal aorta and IVC are grossly unremarkable. IMPRESSION: Severe hepatomegaly with moderate fatty infiltration. No cholelithiasis or acute cholecystitis. Normal CBD. Of note, gallstones were identified on the prior ultrasound study from 06/12/2016. RPTAT: EE Physician Pat Date Time Electronically viewed and signed by Physician Pat on 08/05/2016 13:26 RA/ CC: RUBENS HUTCHINSON PA-C Procedures/MDM This a 36-year-old female who presents to the emergency department today complaining of abdominal pain that radiates to her back for the past 3 days. Upon review of patient's medical record she has a known history of gallstones was last seen here in June 12, 2016. She has not followed up with a primary care physician for referral to a surgeon. I did repeat laboratory work as well as imaging today. Laboratory work shows no elevated white blood cell count. She is not anemic. Platelets are within normal limits. Electrolytes are within normal limits. Liver enzymes are very mildly elevated. Lipase within normal limits. UA is negative for infection. test is negative. Right upper quadrant ultrasound shows severe hepatomegaly with moderate fatty infiltration. There is no cholelithiasis or acute cholecystitis. There is a normal common bile duct. Of note the gallstones that were identified on prior ultrasound study from June 12, 2016 are not evident. There is no intrahepatic biliary ductal dilatation. In looking back again at patient's old records she did have a CT scan at her last visit in June and I do not feel that repeat CT scan is necessary at this time. Her CT scan at that time was negative for any acute surgical abdomen. Patient was given morphine and Zofran here in the emergency department and patient indicated that there was no improvement in pain. She was then given 1 mg of Dilaudid. Approximately 1 hour later patient reported to the nurse that she was itching on her face and her arms. Patient was talking and appeared in no acute distress. There is no evidence of urticaria. Low suspicion for angioedema or anaphylaxis. Patient was given 50 mg of Benadryl Patient has abdominal pain of uncertain etiology. When I discussed the results with the patient's patient had indicated that she was having diarrhea. She did not mention this to me upon the initial history. Other differentials to consider are gastroenteritis versus gastritis. Low suspicion for acute surgical abdomen. Patient will begin a prescription for Tylenol, Bentyl, Zofran, Pedialyte and Benadryl At this time the patient is stable for discharge and outpatient management. Patient should follow up with their PCP in the next 1-2 days. I have explained to her that she may need referral to GI specialist given her multiple complaints of abdominal pain. They may return to the emergency department sooner for any persistent or worsening of symptoms. Patient understood and agreed with the plan. Discussed the patient with Dr. Macias and he is in agreement with the plan. Departure Diagnosis: Primary Impression: Abdominal pain Abdominal location: epigastric Qualified Code: R10.13 - Epigastric pain Condition: Fair RUBENS HUTCHINSON PA-C Aug 05, 2016 13:42
[2016-08-05] MEDS ORDERED: DIPHENHYDRAMINE 50 MG INJ IV ONE (15:00)
[2016-08-05] MEDS ORDERED: DICY10CA60 PO (15:20)
[2016-08-05] MEDS ORDERED: ONDA4TAB8 PO (15:20)
[2016-08-05] MEDS ORDERED: ELEC100080 PO (15:21)
[2016-08-05] MEDS ORDERED: ACET500C5 PO (15:22)
[2016-08-05] MEDS ORDERED: BEN25 PO (15:23)
== END 2016-08-05 15:50 | disposition home or self-care (01) ==
LOC: FTE 11:26
DX: R10.13 Epigastric pain (principal); R11.2 Nausea with vomiting, unspecified
CPT/HCPCS: 76705; 80053; 81001; 83690; 85025; J1170; J1200; J2270; J2405; Z7610; 36415; 96374; 96375; 96376

== ENCOUNTER 2016-08-27 18:02 | Emergency (ER) | payer MEDICAID ==
[~2016-08-27] VITALS: Ht 154.9 cm; Wt 122.0 kg
[~2016-08-27 18:02] MED LIST changes: +ELEC100080 PO; +ONDA4TAB8 PO
[2016-08-27 18:05] VITALS: Ht 154.9 cm; Wt 122.0 kg
--- NOTE | 2016-08-27 20:26 | RADRPT ---
PROCEDURE: CT Head without contrast. CLINICAL INDICATION: Syncope TECHNIQUE: The study was performed utilizing a GE 64-slice multidetector CT scanner. Direct spiral axial CT images of the brain were obtained from the vertex to the skull base without contrast. Cor onal and sagittal reformat images are provided. The CTDI vol is 41.88 mGy and the DLP is 720.23 mGy -cm. The images were reviewed on a PACS workstation. COMPARISON: No prior studies are available for comparison. FINDINGS: The ventricles and cortical sulci are within normal limits. The valdes-white matter differentiation i s maintained. No intra or extra-axial fluid collection or mass effect or shift in the midline struc tures is seen. The visualized paranasal sinuses, mastoid air cells, orbits, and calvarium are unrem arkable. IMPRESSION: No acute intracranial pathology. RPTAT: HPNM Physician Deb Date Time Electronically viewed and signed by Physician Deb on 08/27/2016 20:26 /
--- NOTE | 2016-08-27 20:35 | ERD ---
ER Documentation Chief Complaint Date/Time DATE: 08/27/16 TIME: 20:28 Chief Complaint BLOOD IN THE NOSE, NAUSEA , DIZZINESS , HEADCAHE HPI 36-year-old female presents here in emergency department for multiple complaints. Patient was waiting for a bus, in the hot weather, and apparently had a nosebleed episode, felt dizzy and nauseated, and had a syncopal episode for 45 minutes, patient hit the head into the ground and is complaining of lower posterior scalp pain, throbbing pain, 6/10 scale, is worse upon touching the area. Patient denies any open wounds. She denies any chest pain. Patient also is complaining of right hand pain from falling on it. Complaints of swelling on the right fifth finger and limitation of movement, complains of pain throbbing pain 6/10 scale, worse upon touching the area. ROS All systems reviewed and are negative except as per history of present illness. Medications Home Meds Active Scripts Nitrofurantoin Monohyd Macrocr* (Macrobid*) 100 Mg Capsr, 100 MG PO BID for 7 Days, CAP Prov:GISELE CHRISTINA NP 08/27/16 Acetaminophen* (Tylophen*) 500 Mg Capsule, 1 CAP PO Q6H Y for PAIN AND OR ELEVATED TEMP, #20 CAP Prov:GISELE CHRISTINA NP 08/27/16 Tramadol HCl (Tramadol HCl) 50 Mg Tablet, 50 MG PO Q6 Y for PAIN, #20 TAB Prov:GISELE CHRISTINA NP 08/27/16 Diphenhydramine Hcl* (Benadryl*) 25 Mg Cap, 25 MG PO Q6, #30 CAP Prov:RUBENS HUTCHINSON PA-C 08/05/16 Acetaminophen* (Tylophen*) 500 Mg Capsule, 1 CAP PO Q6H Y for PAIN AND OR ELEVATED TEMP, #30 CAP Prov:RUBENS HUTCHINSONC 08/05/16 Electrolyte,Oral (Pedialyte) 1,000 Ml Solution, 100 ML PO Q6 Y for DIARRHEA, # 1000 ML Prov:RUBENS HUTCHINSONC 08/05/16 Ondansetron Hcl* (Zofran*) 4 Mg Tablet, 4 MG PO Q6H for NAUSEA AND/OR VOMITING, #30 TAB Prov:RUBENS HUTCHINSON PA-C 08/05/16 Dicyclomine Hcl* (Bentyl*) 10 Mg Capsule, 10 MG PO QID, #30 CAP Prov:RUBENS HUTCHINSON PA-C 08/05/16 Ondansetron (Ondansetron Odt) 4 Mg Tab.rapdis, 4 MG PO Q6H Y for NAUSEA AND/OR VOMITING, #10 TAB Prov:TRINIDAD WILLIS PA-C 06/12/16 Dicyclomine Hcl* (Bentyl*) 10 Mg Capsule, 10 MG PO BID, #20 CAP Prov:TRINIDAD WILLIS PA-C 06/12/16 Acetaminophen* (Tylophen*) 500 Mg Capsule, 1 CAP PO Q6H Y for PAIN AND OR ELEVATED TEMP, #15 CAP Prov:SANCHEZ GOETZ MD 04/28/16 Azithromycin* (Zithromax*) 250 Mg Tablet, 250 MG PO .KevinPACK DIRECTED, #6 TAB TAKE 500 MG (2 TABS) THE FIRST DAY THEN 250 MG (1 TAB) DAYS 2-5 Prov:SANCHEZ GOETZ MD 04/28/16 Diphenhydramine Hcl* (Benadryl*) 25 Mg Cap, 25 MG PO Q6, #30 CAP Prov:KRISTYN PERKINS PA-C 04/24/16 Permethrin* (Elimite*) 5% Cr, 1 APPLIC TOP ONCE, #2 TUB Leave cream on for 8 hours. Apply from the neck down to your toes. You may repeat applying the cream14 days after initial treatment if symptoms do not improve. Deje la crema en 8 horas. Aplicar desde el thad hasta los dedos del pie. Se puede repetir aplicando los cream14 d as despu s del tratamiento inicial si los s ntomas no mejoran. Prov:KRISTYN PERKINS PA-C 04/24/16 Benzonatate* (Tessalon Perle*) 100 Mg Capsule, 100 MG PO Q8H Y for COUGH, #20 CAP Prov:KRISTYN PERKINS PA-C 04/24/16 Albuterol Sulfate* (Proair HFA*) 8.5 Gm Hfa.aer.ad, 2 PUFF INH Q4, #1 INHALER Prov:KRISTYN PERKINS PA-C 04/24/16 Prednisone* (Prednisone*) 20 Mg Tab, 40 MG PO DAILY for 4 Days, TAB Prov:KRISTYN PERKINS PA-C 04/24/16 Naproxen* (Naprosyn*) 500 Mg Tablet, 500 MG PO BID Y for PAIN AND/OR INFLAMMATION, #20 TAB Prov:SKINNY PATEL PA-C 01/11/16 Tramadol HCl (Tramadol HCl) 50 Mg Tablet, 50 MG PO Q6 Y for PAIN, #10 TAB Prov:SKINNY PATEL PA-C 01/11/16 Tramadol Hcl* (Ultram*) 50 Mg Tablet, 100 MG PO Q6H Y for PAIN, #20 TAB Prov:CALVIN SWEET NP 11/26/15 Pantoprazole* (Pantoprazole*) 40 Mg Tablet.dr, 40 MG PO BID@06,18 for 30 Days Prov:CALVIN SWEET NP 11/26/15 Hydroxyzine Hcl* (Hydroxyzine Hcl*) 25 Mg Tablet, 25 MG PO Q8H Y for ITCHING, # 15 TAB Prov:IVAN WAN DO 11/17/15 Reported Medications Ondansetron Hcl* (Ondansetron Hcl*) 4 Mg Tablet, 4 MG PO TID Y for NAUSEA AND OR VOMITING, TAB 11/20/15 Allergies Allergies: Coded Allergies: Penicillins (Verified Allergy, Unknown, swelling, 06/12/16) PMhx/Soc History of Surgery: Yes (appendectomy,hernia repair x2) Anesthesia Reaction: No (can't have epidural anethesia, only general anthesia) Hx Neurological Disorder: No Hx Respiratory Disorders: No Hx Cardiac Disorders: No Hx Psychiatric Problems: No Hx Miscellaneous Medical Probl: No Hx Alcohol Use: No Hx Substance Use: No Hx Tobacco Use: No Smoking Status: Never smoker FmHx Family History: No coronary disease, No diabetes, No other Physical Exam Vitals Vital Signs Date Time Temp Pulse Resp B/P Pulse Ox O2 Delivery O2 Flow Rate FiO2 08/27/16 18:05 97.6 83 18 125/72 98 Physical Exam GENERAL: The patient is well developed and appropriate for usual state of health, in no apparent distress. HEENT: Atraumatic. Ears: Normal tympanic membrane, no erythema or bulging. No ear canal swelling. No ear discharge. Nose: normal nasal turbinates, no erythema or swelling. Normal nasal discharge. No active nasal bleeding noted. Throat: oropharynx clear. No tonsillar swelling or tonsillar exudates. No lymphadenopathy. CHEST: Clear to auscultation bilaterally. There are no rales, wheezes or rhonchi. HEART: Regular rate and rhythm. No murmurs, clicks, rubs or gallops. No S3 or S4. ABDOMEN: Soft, nontender and nondistended. Good bowel sounds. No rebound or guarding. No gross peritonitis. No gross organomegaly or masses. No Mittal sign or McBurney point tenderness. BACK: No midline or flank tenderness. EXTREMITIES: Tenderness on palpation on the right fifth finger, with limitation of movement because of pain and swelling. Equal pulses bilaterally. There is no peripheral clubbing, cyanosis or edema. No focal swelling or erythema. Full range of motion. Grossly neurovascularly intact. NEURO: Alert and oriented. Cranial nerves 2-12 intact. Motor strength in all 4 extremities with 5/5 strength. Sensation grossly intact. Normal speech and gait. Negative Romberg sign. Negative pronator drift. SKIN: There is no apparent rash or petechia. The skin is warm and dry. HEMATOLOGIC AND LYMPHATIC: There is no evidence of excessive bruising or lymphedema. No gross cervical, axillary, or inguinal lymphadenopathy. Result Diagram: 08/27/16202908/27/162029 Results 24 hrs Laboratory Tests Test 08/27/16 20:07 08/27/16 20:30 Urine Color YELLOW Urine Clarity CLOUDY Urine pH 5.0 Urine Specific [place] 1.028 Urine Ketones NEGATIVEmg/dL Urine Nitrite NEGATIVEmg/dL Urine Bilirubin NEGATIVEmg/dL Urine Urobilinogen NEGATIVEmg/dL Urine Leukocyte Esterase 2+Magan/ul Urine Microscopic RBC 2/HPF Urine Microscopic WBC 19/HPF Urine Squamous Epithelial Cells MODERATE/HPF Urine Calcium Oxalate Crystals MANY/HPF Urine Bacteria FEW/HPF Urine Mucus FEW/HPF Urine Hemoglobin NEGATIVEmg/dL Urine Glucose NEGATIVEmg/dL Urine Total Protein NEGATIVEmg/dl White Blood Count 10.510^3/ul Red Blood Count 5.0610^6/ul Hemoglobin 13.3g/dl Hematocrit 41.4% Mean Corpuscular Volume 81.8fl Mean Corpuscular Hemoglobin 26.3pg Mean Corpuscular Hemoglobin Concent 32.1g/dl Red Cell Distribution Width 13.9% Platelet Count Pending Mean Platelet Volume 10.0fl Neutrophils % 64.5% Lymphocytes % 24.0% Monocytes % 9.2% Eosinophils % 1.3% Basophils % 0.4% Nucleated Red Blood Cells % 0.0/100WBC Neutrophils # 6.810^3/ul Lymphocytes # 2.510^3/ul Monocytes # 1.010^3/ul Eosinophils # 0.110^3/ul Basophils # 0.010^3/ul Nucleated Red Blood Cells # 0.010^3/ul Prothrombin Time 12.2Sec Prothrombin Time Ratio 1.0 INR International Normalized Ratio 0.91 Activated Partial Thromboplast Time 29.0Sec Thrombin Time Pending Sodium Level 142mmol/L Potassium Level 4.2mmol/L Chloride Level 103mmol/L Carbon Dioxide Level 26mmol/L Anion Gap 17 Blood Urea Nitrogen 14mg/dl Creatinine 0.76mg/dl Glucose Level 88mg/dl Calcium Level 9.7mg/dl Total Bilirubin 0.6mg/dl Direct Bilirubin 0.00mg/dl Indirect Bilirubin 0.6mg/dl Aspartate Amino Transf (AST/SGOT) 40IU/L Alanine Aminotransferase (ALT/SGPT) 76IU/L Alkaline Phosphatase 98IU/L Total Protein 8.0g/dl Albumin 4.3g/dl Globulin 3.70g/dl Albumin/Globulin Ratio 1.16 Current Medications Medications (Trade) Dose Ordered Sig/Kanwal Route PRN Reason Start Time Stop Time Status Last Admin Dose Admin Tramadol HCl (Ultram) 50 mg ONCE ONCE PO 08/27/16 21:00 08/27/16 21:01 DC 08/27/16 21:12 EKG was done, read by me and is normal sinus rhythm at a rate of 77, normal axis , there is no ST changes or changes in the EKG that indicates any cardiac emergencies at this time. Patient's EKG was also reviewed by Dr. Goetz. Impression: no acute findings on EKG PROCEDURE: CT Head without contrast. CLINICAL INDICATION: Syncope TECHNIQUE: The study was performed utilizing a GE 64-slice multidetector CT scanner. Direct spiral axial CT images of the brain were obtained from the vertex to the skull base without contrast. Coronal and sagittal reformat images are provided. The CTDI vol is 41.88 mGy and the DLP is 720.23 mGy-cm. The images were reviewed on a PACS workstation. COMPARISON: No prior studies are available for comparison. FINDINGS: The ventricles and cortical sulci are within normal limits. The valdes-white matter differentiation is maintained. No intra or extra-axial fluid collection or mass effect or shift in the midline structures is seen. The visualized paranasal sinuses, mastoid air cells, orbits, and calvarium are unremarkable. IMPRESSION: No acute intracranial pathology. RPTAT: [facility]PN[facility] Physician Deb Date Time Electronically viewed and signed by Physician Deb on 08/27/2016 20 :26 / CC: GISELE CHRISTINA OIL BURNER PROCEDURE: X-ray right hand CLINICAL INDICATION: Right hand pain, with reference marker directed towards the fifth MCP joint. TECHNIQUE: 3 views of the right hand COMPARISON: None FINDINGS: No acute fracture or dislocation. Soft tissues unremarkable. IMPRESSION: No acute fracture. RPTAT: [facility] Physician Gregory Date Time Electronically viewed and signed by Physician Gregory on 08/27/2016 21:17 RS/ CC: GISELE CHRISTINA OIL BURNER Procedures/[facility] Medical Decision Making: Patient's hand pain is most likely consistent with a contusion . There is no suspicion for neurovascular compromise. Patient has intact sensation and circulation of the affected extremity. There is low suspicion for septic arthritis. Patient does not have any fever. Radiology exams of the affected area does not show any fracture or dislocation. Patient's syncopal episode headache dizziness nonspecific at this time, most likely can be from heat exhaustion, patient's nosebleed may be also from this. At this time, no nasal bleeding actively noted at this time, no other bleeding symptoms. Coag screens are negative. Laboratory testing does not show any other lecture light balance. EKG is normal. There is low suspicion for neurological emergencies at this time since patients neurologic exam is normal. Patient did not have any altered level consciousness, vomiting, changes in balance or memory after incident. Patients CT scan of the head does not show any neurological emergencies at this time. She also has urinary tract infection and will be treated. No symptoms of pyelonephritis. No symptoms of sepsis. Disposition: Home. Patient is given prescription for Tylenol for mild to moderate pain, tramadol for severe pain, Macrobid. Patient was advised to elevate the affected area and apply ice on affected area. Patient was advised that if symptoms are worse, numbness, tingling, high fever, unable to move joint , worsening symptoms, to return to emergency department immediately. Otherwise, patient is advised to follow up with the primary care doctor in 5-7 days for reevaluation of symptoms. Disclaimer: Inadvertent spelling and grammatical errors are likely due to EHR/ dictation software use and do not reflect on the overall quality of patient care. Also, please note that the electronic time recorded on this note does not necessarily reflect the actual time of the patient encounter. Departure Diagnosis: Primary Impression: Syncope Syncope type: heat syncope Encounter type: initial encounter Qualified Code : T67.1XXA - Heat syncope, initial encounter Additional Impressions: Epistaxis Contusion, hand Encounter type: initial encounter Laterality: right Qualified Code: S60.221A - Contusion of right hand, initial encounter UTI (urinary tract infection) Urinary tract infection type: acute cystitis Hematuria presence: with hematuria Qualified Code: N30.01 - Acute cystitis with hematuria Condition: Stable Patient Instructions: Causes of Syncope, Contusion, Hand, Epistaxis (Adult) Additional Instructions: Patient is given prescription for Tylenol for mild to moderate pain, tramadol for severe pain. Patient was advised to elevate the affected area and apply ice on affected area. Patient was advised that if symptoms are worse, numbness, tingling, high fever, unable to move joint, worsening symptoms, to return to emergency department immediately. Otherwise, patient is advised to follow up with the primary care doctor in 5-7 days for reevaluation of symptoms. GISELE CHRISTINA. OIL BURNER Aug 27, 2016 20:35
[2016-08-27 20:44] LABS: ADD SCAN DIFF NO
[2016-08-27 20:47] LABS: BASOPHILS % 0.4 % (0.0-2.0); EOSINOPHILS # 0.1 10^3/ul (0.0-0.5); EOSINOPHILS % 1.3 % (0.0-7.0); HEMATOCRIT 41.4 % (37.0-47.0); HEMOGLOBIN 13.3 g/dl (12.0-16.0); LYMPHOCYTES # 2.5 10^3/ul (0.8-2.9); MEAN CORPUSCULAR HEMOGLOBIN 26.3 pg (29.0-33.0); MEAN CORPUSCULAR HGB CONC 32.1 g/dl (32.0-37.0); MEAN CORPUSCULAR VOLUME 81.8 fl (82.0-101.0); MONOCYTES % 9.2 % (0.0-11.0); NEUTROPHIL # 6.8 10^3/ul (1.6-7.5); NEUTROPHILS % 64.5 % (39.0-77.0); PLATELET COUNT 283 10^3/UL (140-415); RED BLOOD COUNT 5.06 10^6/ul (4.20-5.40); RED CELL DISTRIBUTION WIDTH 13.9 % (11.5-14.5); WHITE BLOOD COUNT 10.5 10^3/ul (4.8-10.8)
[2016-08-27 20:47] LABS: ADD UMIC YES; UR ASCORBIC ACID NEGATIVE (NEGATIVE); UR BACTERIA FEW /HPF (NONE SEEN); UR BILIRUBIN (Dip) NEGATIVE (NEGATIVE); UR BLOOD (Dip) NEGATIVE (NEGATIVE); UR CLARITY CLOUDY (CLEAR); UR COLOR YELLOW (YELLOW); UR GLUCOSE (Dip) NEGATIVE (NEGATIVE); UR KETONES (Dip) NEGATIVE (NEGATIVE); UR LEUKOCYTE ESTERASE (Dip) 2+ Leu/ul (NEGATIVE); UR MUCUS FEW /HPF (NONE SEEN); UR NITRITE (Dip) NEGATIVE (NEGATIVE); UR RBC 2 /HPF (0-5); UR SPECIFIC GRAVITY (Dip) 1.028 (1.003-1.030); UR SQUAMOUS EPITHELIAL CELL MODERATE /HPF (FEW); UR TOTAL PROTEIN (Dip) NEGATIVE (NEGATIVE); UR UROBILINOGEN (Dip) NEGATIVE (NEGATIVE)
[2016-08-27] MEDS ORDERED: traMADol 50 MG TAB PO ONE (21:00)
[2016-08-27 21:03] LABS: INR 0.91; PROTIME 12.2 Sec (12.2-14.2)
[2016-08-27 21:07] LABS: ALBUMIN 4.3 g/dl (3.3-4.9); ALBUMIN/GLOBULIN RATIO 1.16; BILIRUBIN,INDIRECT 0.6 mg/dl (0-1.1); BILIRUBIN,TOTAL 0.6 mg/dl (0.2-1.3); CALCIUM 9.7 mg/dl (8.4-10.2); CREATININE 0.76 mg/dl (0.44-1.00); POTASSIUM 4.2 mmol/L (3.5-5.1)
--- NOTE | 2016-08-27 21:18 | RADRPT ---
PROCEDURE: X-ray right hand CLINICAL INDICATION: Right hand pain, with reference marker directed towards the fifth MCP joint. TECHNIQUE: 3 views of the right hand COMPARISON: None FINDINGS: No acute fracture or dislocation. Soft tissues unremarkable. IMPRESSION: No acute fracture. RPTAT: [facility] Physician Gregory Date Time Electronically viewed and signed by Margaret Riley Physician on 08/27/2016 21:17 RS/
[2016-08-27] MEDS ORDERED: NITR-58 PO (21:28)
[2016-08-27] MEDS ORDERED: TRAM50TA2 PO (21:28)
[2016-08-27] MEDS ORDERED: ACET500C5 PO (21:28)
[2016-08-27 23:39] LABS: THROMBIN TIME 15.6 SEC (13.8-19.1)
== END 2016-08-27 22:00 | disposition home or self-care (01) ==
LOC: FTE 18:02
DX: T67.1XXA Heat syncope, initial encounter (principal); S60.221A Contusion of right hand, initial encounter; N30.01 Acute cystitis with hematuria; W01.198A Fall on same level from slipping, tripping and stumbling with subsequent striking against other object, initial encounter; Y92.9 Unspecified place or not applicable
CPT/HCPCS: 70450; 73130; 80053; 81001; 85025; 85049; 85610; 85670; 85730; 93005; Z7502; Z7610

== ENCOUNTER 2017-04-27 11:01 | Emergency (ER) | END 2017-04-27 14:55 | disposition home or self-care (01) ==

== ENCOUNTER 2017-05-06 13:43 | Emergency (ER) | END 2017-05-06 18:00 | disposition home or self-care (01) ==

== ENCOUNTER 2017-06-10 17:07 | Emergency (ER) | END 2017-06-10 19:45 | disposition home or self-care (01) ==

== ENCOUNTER 2018-07-14 01:36 | Emergency (ER) | payer MEDICAID ==
[~2018-07-14] VITALS: Ht 162.6 cm; Wt 125.5 kg
[~2018-07-14 01:36] MED LIST changes: +ACET1TAB40 PO; -ALBU8.5H3 INH; +ALBU8.5H8 INH; +AZIT250T PO; -AZIT250T94 PO; +BENZ-6 PO; -BENZ100C70 PO; +CIPR500T4 PO; +DICY10CA40 PO; -DICY10CA60 PO; +FIORICET PO; -HYDR-3011 PO; +HYDR-843 PO; -NAPR-260 PO; +NAPR-985 PO; +NITR-58 PO; +PHEN-537 PO; +SULF1TAB31 PO; -TRAM-40 PO; +TRAM50TA PO
[2018-07-14 01:51] VITALS: Ht 162.6 cm; Wt 125.5 kg
--- NOTE | 2018-07-14 02:28 | ERD ---
ER Documentation Chief Complaint Chief Complaint abd pain left side; w nausea; dark red stool(constipated); fever HPI 38-year-old female with no significant past medical history presents to the emergency department complaining of intermittent abdominal pain for the past 3 days. Patient localizes the pain to the left lower quadrant. Associated symptoms include nausea, vomiting, and fevers. Patient took no medication for relief of symptoms. Symptoms currently moderate to severe. No other symptoms reported at this time. ROS All systems reviewed and are negative except as per history of present illness. Medications Home Meds Active Scripts Docusate Sodium* (Colace*) 100 Mg Capsule, 100 MG PO TID, #30 CAP Prov:TRINIDDA WILLIS PA-C 07/14/18 Polyethylene Glycol* (Miralax*) 17 Gm Powd.pack, 17 GM PO DAILY, #7 Prov:TRINIDAD WILLIS PA-C 07/14/18 Naproxen* (Naprosyn*) 500 Mg Tablet, 500 MG PO BID PRN for PAIN AND/OR IN FLAMMATION, #30 TAB Prov:TRINIDAD WILLIS PA-C 07/14/18 Phenazopyridine Hcl* (Pyridium*) 100 Mg Tab, 100 MG PO TID PRN for URINARY PAIN, #8 TAB Prov:PRIETO GALLEGO 06/23/17 Ciprofloxacin Hcl* (Ciprofloxacin Hcl*) 500 Mg Tablet, 500 MG PO BID for 10 Da ys, TAB Prov:PRIETO GALLEGO 06/23/17 Ondansetron (Ondansetron Odt) 4 Mg Tab.rapdis, 4 MG PO Q6H PRN for NAUSEA AND/OR VOMITING, #20 TAB Prov:EVELYN CRUZ MD 06/10/17 Acetamin/Butalbital/Caffeine* (Fioricet*) [id number] Tab, 1 TAB PO Q6H PRN for PAIN, #20 TAB Prov:EVELYN CRUZ MD 06/10/17 Acetaminophen with Codeine (Acetaminophen-Cod #3 Tablet) 1 Each Tablet, 1 TAB PO Q6H PRN for PAIN, #10 TAB Prov:SANCHEZ CASTELLANOS MD 05/06/17 Sulfamethoxazole/Trimethoprim* (Bactrim Ds* Tablet) 1 Each Tablet, 1 TAB PO BID for 5 Days, TAB Prov:SANCHEZ CASTELLANOS MD 05/06/17 Tramadol Hcl* (Ultram*) 50 Mg Tablet, 50 MG PO Q6H PRN for PAIN, #10 TAB Prov:GERARDO MAJANO MD 04/27/17 Nitrofurantoin Monohyd Macrocr* (Macrobid*) 100 Mg Capsr, 100 MG PO BID for 7 Days, CAP Prov:GISELE CHRISTINA NP 08/27/16 Acetaminophen* (Tylophen*) 500 Mg Capsule, 1 CAP PO Q6H PRN for PAIN AND OR ELEVATED TEMP, #20 CAP Prov:GISELE CHRISTINA NP 08/27/16 Tramadol HCl (Tramadol HCl) 50 Mg Tablet, 50 MG PO Q6 PRN for PAIN, #20 TAB Prov:GISELE CHRISTINA INFORMATICA MDM ARCHITECT 08/27/16 Diphenhydramine Hcl* (Benadryl*) 25 Mg Cap, 25 MG PO Q6, #30 CAP Prov:RUBENS HUTCHINSON PA-C 08/05/16 Acetaminophen* (Tylophen*) 500 Mg Capsule, 1 CAP PO Q6H PRN for PAIN AND OR ELEVATED TEMP, #30 CAP Prov:RUBENS HUTCHINSON PA-C 08/05/16 Electrolyte,Oral (Pedialyte) 1,000 Ml Solution, 100 ML PO Q6 PRN for DIARRHEA, #1000 ML Prov:RUBENS HUTCHINSONC 08/05/16 Ondansetron Hcl* (Zofran*) 4 Mg Tablet, 4 MG PO Q6H for NAUSEA AND/OR VOMITING, #30 TAB Prov:RUBENS HUTCHINSONC 08/05/16 Dicyclomine HCl (Dicyclomine HCl) 10 Mg Capsule, 10 MG PO QID, #30 CAP Prov:RUBENS HUTCHINSON PA-C 08/05/16 Ondansetron (Ondansetron Odt) 4 Mg Tab.rapdis, 4 MG PO Q6H PRN for NAUSEA AND/OR VOMITING, #10 TAB Prov:TRINIDAD WILLISC 06/12/16 Dicyclomine HCl (Dicyclomine HCl) 10 Mg Capsule, 10 MG PO BID, #20 CAP Prov:TRINIDAD WILLIS PA-C 06/12/16 Acetaminophen* (Tylophen*) 500 Mg Capsule, 1 CAP PO Q6H PRN for PAIN AND OR ELEVATED TEMP, #15 CAP Prov:SANCHEZ CASTELLANOS MD 04/28/16 Azithromycin* (Zithromax*) 250 Mg Tablet, 250 MG PO .KevinPACK DIRECTED, #6 TAB TAKE 500 MG (2 TABS) THE FIRST DAY THEN 250 MG (1 TAB) DAYS 2-5 Prov:SANCHEZ CASTELLANOS MD 04/28/16 Diphenhydramine Hcl* (Benadryl*) 25 Mg Cap, 25 MG PO Q6, #30 CAP Prov:KRISTYN PERKINS PA-C 04/24/16 Permethrin* (Elimite*) 5% Cr, 1 APPLIC TOP ONCE, #2 TUB Leave cream on for 8 hours. Apply from the neck down to your toes. You may repeat applying the cream14 days after initial treatment if symptoms do not improve. Deje la crema en 8 horas. Aplicar desde el thad hasta los dedos del pie. Se puede repetir aplicando los cream14 haskins despus del tratamiento inicial si los sntomas no mejoran. Prov:KRISTYN PERKINS PA-C 04/24/16 Benzonatate* (Tessalon Perle*) 100 Mg Capsule, 100 MG PO Q8H PRN for COUGH, #20 CAP Prov:KRISTYN PERKINS PA-C 04/24/16 Albuterol Sulfate* (Proair HFA*) 8.5 Gm Hfa.aer.ad, 2 PUFF INH Q4, #1 INHALER Prov:KRISTYN PERKINS PA-C 04/24/16 Prednisone* (Prednisone*) 20 Mg Tab, 40 MG PO DAILY for 4 Days, TAB Prov:KRISTYN PERKINS PA-C 04/24/16 Naproxen* (Naprosyn*) 500 Mg Tablet, 500 MG PO BID PRN for PAIN AND/OR INFLAMMATION, #20 TAB Prov:SKINNY PATEL PA-C 01/11/16 Tramadol HCl (Tramadol HCl) 50 Mg Tablet, 50 MG PO Q6 PRN for PAIN, #10 TAB Prov:SKINNY PATEL PA-C 01/11/16 Tramadol Hcl* (Ultram*) 50 Mg Tablet, 100 MG PO Q6H PRN for PAIN, #20 TAB Prov:CALVIN SWEET V. INFORMATICA MDM ARCHITECT 11/26/15 Pantoprazole* (Pantoprazole*) 40 Mg Tablet.dr, 40 MG PO BID@06,18 for 30 Days Prov:CALVIN SWEET V. INFORMATICA MDM ARCHITECT 11/26/15 Hydroxyzine Hcl* (Hydroxyzine Hcl*) 25 Mg Tablet, 25 MG PO Q8H PRN for ITCHING, #15 TAB Prov:IVAN WAN DO 11/17/15 Reported Medications Ondansetron Hcl* (Ondansetron Hcl*) 4 Mg Tablet, 4 MG PO TID PRN for NAUSEA AND OR VOMITING, TAB 11/20/15 Allergies Allergies: Coded Allergies: Penicillins (Verified Allergy, Unknown, swelling, 06/12/16) PMhx/Soc History of Surgery: Yes (Gallbladder, appendectomy, [id number], hernia repair.) Anesthesia Reaction: No Hx Neurological Disorder: No Hx Respiratory Disorders: No Hx Cardiac Disorders: No Hx Psychiatric Problems: No Hx Miscellaneous Medical Probl: No Hx Alcohol Use: No Hx Substance Use: No Hx Tobacco Use: No FmHx Family History: No diabetes Physical Exam Vitals Vital Signs Date Temp Pulse Resp B/P (MAP) Pulse Ox O2 O2 Flow FiO2 Time Delivery Rate 07/14/18 98.2 82 18 110/69 92 05:56 (83) 07/14/18 98.5 81 22 119/77 98 01:51 (91) Physical Exam Const: No acute distress Head: Atraumatic Eyes: Normal Conjunctiva ENT: Normal External Ears, Nose and Mouth. Neck: Full range of motion. No meningismus. Resp: Clear to auscultation bilaterally Cardio: Regular rate and rhythm, no murmurs Abd: Obese abdomen, soft, tender to palpation of the left lower quadrant, no rebound tenderness or guarding, no McBurney's point tenderness, non distended. Normal bowel sounds Skin: No petechiae or rashes Back: No midline or flank tenderness Ext: No cyanosis, or edema Neur: Awake and alert Psych: Normal Mood and Affect Result Diagram: 07/14/1829907/14/18 0300 Results 24 hrs Laboratory Tests Test 07/14/18 03:00 White Blood Count 13.4 10^3/ul Red Blood Count 5.43 10^6/ul Hemoglobin 14.1 g/dl Hematocrit 44.2 % Mean Corpuscular Volume 81.4 fl Mean Corpuscular Hemoglobin 26.0 pg Mean Corpuscular Hemoglobin Concent 31.9 g/dl Red Cell Distribution Width 14.2 % Platelet Count 308 10^3/UL Mean Platelet Volume 9.8 fl Immature Granulocytes % 0.400 % Neutrophils % 90.1 % Lymphocytes % 7.9 % Monocytes % 1.4 % Eosinophils % 0.0 % Basophils % 0.2 % Nucleated Red Blood Cells % 0.0 /100WBC Immature Granulocytes # 0.060 10^3/ul Neutrophils # 12.1 10^3/ul Lymphocytes # 1.1 10^3/ul Monocytes # 0.2 10^3/ul Eosinophils # 0.0 10^3/ul Basophils # 0.0 10^3/ul Nucleated Red Blood Cells # 0.0 10^3/ul Prothrombin Time 12.4 Sec Prothrombin Time Ratio 1.0 INR International Normalized Ratio 0.91 Activated Partial Thromboplast Time 30.9 Sec Urine Color YELLOW Urine Clarity CLEAR Urine pH 5.0 Urine Specific Trezevant > 1.060 Urine Ketones NEGATIVE mg/dL Urine Nitrite NEGATIVE mg/dL Urine Bilirubin NEGATIVE mg/dL Urine Urobilinogen NEGATIVE mg/dL Urine Leukocyte Esterase TRACE Magan/ul Urine Microscopic RBC 2 /HPF Urine Microscopic WBC 7 /HPF Urine Squamous Epithelial Cells FEW /HPF Urine Mucus FEW /HPF Urine Hemoglobin 1+ mg/dL Urine Glucose NEGATIVE mg/dL Urine Total Protein NEGATIVE mg/dl Sodium Level 140 mmol/L Potassium Level 4.8 mmol/L Chloride Level 108 mmol/L Carbon Dioxide Level 22 mmol/L Anion Gap 10 Blood Urea Nitrogen 17 mg/dl Creatinine 0.83 mg/dl Est Glomerular Filtrat Rate mL/min > 60 mL/min Glucose Level 160 mg/dl Calcium Level 9.4 mg/dl Total Bilirubin 0.9 mg/dl Direct Bilirubin 0.00 mg/dl Indirect Bilirubin 0.9 mg/dl Aspartate Amino Transf (AST/SGOT) 121 IU/L Alanine Aminotransferase (ALT/SGPT) 117 IU/L Alkaline Phosphatase 123 IU/L Total Protein 8.4 g/dl Albumin 4.5 g/dl Globulin 3.90 g/dl Albumin/Globulin Ratio 1.15 Lipase 540 U/L POC Beta HCG, Qualitative NEGATIVE Current Medications Medications Dose Sig/Kanwal Start Time Status Last (Trade) Ordered Route PRN Stop Time Admin Dose Reason Admin Sodium 1,000 ml @ Q1H STAT 07/14/18 DC 07/14/18 Chloride 1,000 mls/hr IV 02:39 07/14/18 03:10 03:38 Ondansetron 4 mg ONCE STAT 07/14/18 DC 07/14/18 HCl (Zofran IV 02:39 07/14/18 03:10 Inj) 02:41 Ketorolac 15 mg ONCE STAT 07/14/18 DC 07/14/18 Tromethamine IV 02:39 07/14/18 03:10 (Toradol) 02:41 Morphine 4 mg ONCE STAT 07/14/18 DC 07/14/18 Sulfate IV 04:54 07/14/18 05:06 (morphine) 04:55 [place] [id number] Radiology Main Line: [phone] DIAGNOSTIC IMAGING REPORT Patient: SIERRA RAMOS : 1980 Age: 38 Sex: F MR #: [id number] DOS: 07/14/18 0239 Ordering MD: TRINIDAD WILLIS PA-C Location: E Room/Bed: PROCEDURE: CT Abdomen and pelvis without contrast. CLINICAL INDICATION: Abdominal pain TECHNIQUE: CT scan of the abdomen and pelvis without contrast was performed on a multidetector high-resolution CT scan. . Coronal and sagittal reformatted images were obtained from the axial source images. Standard CT scan of the abdomen pelvis without contrast protocols were performed. The total exam CTDI equals 23.79 mGy and the total exam DLP equals 1575.97 mGy- cm. One or more of the following dose reduction techniques were used: - Automated exposure control. - Adjustment of the mA and/or kV according to patient size. Use of iterative reconstruction technique. Dicom images are available COMPARISON: CT abdomen pelvis 06/29/2018 FINDINGS: The kidneys are normal in size without hydronephrosis or intra renal masses bilaterally. Note that there is contrast seen within the renal collecting systems including portions of the ureters pelvocaliceal systems and contracted urinary bladder from previous intravenous contrast administration. No demo nstration of urinary calculi. Anteverted anteflexed uterus otherwise unremarkable. No adnexal masses. Status post prior cholecystectomy. No evidence of biliary ductal dilation. A definite appendix is not visualized however no CT evidence of appendicitis. Stomach, small bowel and large bowel unremarkable. No evidence of intra-abdominal free air, free fluid, abscesses or lymphadenopathy. Hepatomegaly with diffuse hepatic fatty infiltration. Spleen pancreas adrenal glands unremarkable. Bilateral lower lung subsegmental atelectasis and chronic interstitial lung disease. Stable 6 mm nodule like density posterior right lower lobe. Aorta unremarkable. No change anterior lateral right lower quadrant incisional fat-containing hernia without herniated bowel or strangulation. Degenerative changes of the lower thoracic and lumbar spine without acute osseous findings are osteoblastic/osteolytic lesions. IMPRESSION: 1. Residual contrast within the urinary collecting system as described above. No obstructive uropathy bilaterally. 2. Status post prior cholecystectomy. No biliary ductal dilation. 3. No gastrointestinal disease. 4. Hepatomegaly with hepatic fatty infiltration. 5. Bibasilar subsegmental atelectasis/chronic interstitial lung disease. Stable 6 mm right lower lobe pulmonary nodule. 6. No change anterior lateral right lower quadrant abdominal wall incisional fat-containing hernia without herniated bowel or strangulation. RPTAT:AAJJ Physician Fatimah Date Time Electronically viewed and signed by Physician Fatimah on 07/14/2018 04:35 BM/ Procedures/MDM 38-year-old female presents to the emergency department complaining of left lower quadrant abdominal pain associated with constipation. Patient was reporting vomiting. Patient was administered IV fluids, IV Zofran, IV Toradol. On reevaluation she was significantly improved. CBC: no e/o of systemic infection or severe anemia CMP: no e/o severe acidosis, alkalosis, renal failure, diabetic ketoacidosis, liver disease Lipase: no e/o pancreatitis PT/INR: normal coagulation Urine: no e/o acute infection or hematuria CT abdomen and pelvis without contrast: No significant or emergent acute pathology. Full report interpreted by the radiologist may be viewed above. Medical decision making: Patient symptoms likely secondary to constipation. Low suspicion for bowel obstruction or acute surgical abdomen. Patient was improved in the department and she was stable and appropriate for discharge and further outpatient management with prescriptions. Patient was advised to have close follow-up with her primary care physician within the next 24 to 48 hours and return to the department immediately for any new or worsening or concerning sym ptoms. The patient was in agreement with the diagnosis, plan, need for follow- up, return precautions. All questions and concerns were addressed prior to discharge. No evidence of life-threatening or emergent pathology prior to discharge. Low suspicion for diverticulitis, toxic megacolon, urinary tract infection, pyelonephritis, appendicitis, cholecystitis, diverticulitis, and others. Departure Diagnosis: Primary Impression: Abdominal pain Condition: Fair Patient Instructions: Abdominal Pain Additional Instructions: Muchas christiano por [facility] para mcpherson servicio. Esperamos que en mcpherson visita a la maral de emergencia mcpherson problema medico haya sido solucionado y que se sienta mucho mejor. Para estar seguros que mcpherson mejoria sigue en proceso, le pedimos el favor de hacer jahaira deidra de seguimiento medico con mcpherson doctor primario en los proximos 2-4 reddy. Lleve con usted estos documentos y las medicinas recetadas. Si tianna sintomas empeoran, NO SE ESPERE, por favor regrese a maral de emergencia INMEDIATAMENTE. En pal que usted no tenga un mdico de atencin primaria: Llame al mdico o clnica comunitaria de referencia que aparece abajo nirmala las horas de consultorio para hacer jahaira deidra para que le vean. CLINICAS: [facility] [phone] [facility] [phone] [address] [facility] [phone] [address] [facility] [phone] [place] [phone] [facility]. [phone] TRINIDAD DINH PA-C Jul 14, 2018 02:28
[2018-07-14] MEDS ORDERED: ONDANSETRON 4 MG INJ IV STA (02:39)
[2018-07-14] MEDS ORDERED: SOD CHLORIDE 0.9% 1,000 ML IV STA (02:39)
[2018-07-14] MEDS ORDERED: KETOROLAC 15 MG INJ IV STA (02:39)
[2018-07-14] MEDS ORDERED: NAPR-985 PO (04:41)
[2018-07-14] MEDS ORDERED: POLY17PO6 PO (04:41)
[2018-07-14] MEDS ORDERED: DOCU-144 PO (04:41)
[2018-07-14] MEDS ORDERED: morphine 4 MG/ML VIAL IV STA (04:54)
[2018-07-14 05:56] VITALS: BP 110/69; PULSE 82; RESP 18
[2018-07-14] MEDS ORDERED: IBUP800T48 PO (07:54)
== END 2018-07-14 05:57 | disposition home or self-care (01) ==
LOC: FTE 01:36
DX: R10.32 Left lower quadrant pain (principal)
CPT/HCPCS: 74176; 80053; 81001; 81025; 83690; 85025; 85610; 85730; J1885; J2270; J2405; J7030; 36415; 96361; 96374; 96375

== ENCOUNTER 2018-07-14 06:30 | Emergency (ER) | payer MEDICAID ==
[~2018-07-14] VITALS: Ht 162.6 cm; Wt 125.0 kg
[~2018-07-14 06:30] MED LIST changes: +DOCU-144 PO; +POLY17PO6 PO
[2018-07-14 06:35] VITALS: Ht 162.6 cm; Wt 125.0 kg
[2018-07-14] MEDS ORDERED: ACETAMINOPHEN 500 MG TAB PO ONE (07:00)
--- NOTE | 2018-07-14 07:43 | ERD ---
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 Patient was just seen in the emergency room and discharged. She was seen and evaluated for abdominal pain and received some morphine. The patient was walking to the patient drop off the area and felt lightheaded and slipped and fell hitting her head. She thinks that she may have passed out but is unsure. The patient is a somewhat limited historian and very anxious. She denies any neck pain. No prodrome of chest pain or shortness of breath, nausea or vomiting. During the patient's encounter translation services were utilized Language: French Source: In person ROS All systems reviewed and are negative except as per history of present illness. Medications Home Meds Active Scripts Ibuprofen* (Motrin*) 800 Mg Tab, 800 MG PO Q6H PRN for PAIN AND OR ELEVATED TEMP, #30 TAB Prov:EVELYN CRUZ MD 07/14/18 Docusate Sodium* (Colace*) 100 Mg Capsule, 100 MG PO TID, #30 CAP Prov:TRINIDAD WILLIS PA-C 07/14/18 Polyethylene Glycol* (Miralax*) 17 Gm Powd.pack, 17 GM PO DAILY, #7 Prov:TRINIDAD WILLIS PA-C 07/14/18 Naproxen* (Naprosyn*) 500 Mg Tablet, 500 MG PO BID PRN for PAIN AND/OR INFLAMMATION, #30 TAB Prov:TRINIDAD WILLIS PA-C 07/14/18 Phenazopyridine Hcl* (Pyridium*) 100 Mg Tab, 100 MG PO TID PRN for URINARY PAIN, #8 TAB Prov:JULIÁNPRIETO DINERO 06/23/17 Ciprofloxacin Hcl* (Ciprofloxacin Hcl*) 500 Mg Tablet, 500 MG PO BID for 10 Days, TAB Prov:PRIETO GALLEGO 06/23/17 Ondansetron (Ondansetron Odt) 4 Mg Tab.rapdis, 4 MG PO Q6H PRN for NAUSEA AND/OR VOMITING, #20 TAB Prov:EVELYN CRUZ MD 06/10/17 Acetamin/Butalbital/Caffeine* (Fioricet*) [id number] Tab, 1 TAB PO Q6H PRN for PAIN, #20 TAB Prov:EVELYN CRUZ MD 06/10/17 Acetaminophen with Codeine (Acetaminophen-Cod #3 Tablet) 1 Each Tablet, 1 TAB PO Q6H PRN for PAIN, #10 TAB Prov:SANCHEZ CASTELLANOS MD 05/06/17 Sulfamethoxazole/Trimethoprim* (Bactrim Ds* Tablet) 1 Each Tablet, 1 TAB PO BID for 5 Days, TAB Prov:SANCHEZ CASTELLANOS MD 05/06/17 Tramadol Hcl* (Ultram*) 50 Mg Tablet, 50 MG PO Q6H PRN for PAIN, #10 TAB Prov:GERARDO MAJANO MD 04/27/17 Nitrofurantoin Monohyd Macrocr* (Macrobid*) 100 Mg Capsr, 100 MG PO BID for 7 Days, CAP Prov:GISELE CHRISTINA NP 08/27/16 Acetaminophen* (Tylophen*) 500 Mg Capsule, 1 CAP PO Q6H PRN for PAIN AND OR ELEVATED TEMP, #20 CAP Prov:GISELE CHRISTINA NP 08/27/16 Tramadol HCl (Tramadol HCl) 50 Mg Tablet, 50 MG PO Q6 PRN for PAIN, #20 TAB Prov:GISELE CHRISTINA NP 08/27/16 Diphenhydramine Hcl* (Benadryl*) 25 Mg Cap, 25 MG PO Q6, #30 CAP Prov:RUBENS HUTCHINSON PA-C 08/05/16 Acetaminophen* (Tylophen*) 500 Mg Capsule, 1 CAP PO Q6H PRN for PAIN AND OR REGINA VATED TEMP, #30 CAP Prov:RUBENS HUTCHINSON PA-C 08/05/16 Electrolyte,Oral (Pedialyte) 1,000 Ml Solution, 100 ML PO Q6 PRN for DIARRHEA, #1000 ML Prov:RUBENS HUTCHINSON PA-C 08/05/16 Ondansetron Hcl* (Zofran*) 4 Mg Tablet, 4 MG PO Q6H for NAUSEA AND/OR VOMITING, #30 TAB Prov:RUBENS HUTCHINSON PA-C 08/05/16 Dicyclomine HCl (Dicyclomine HCl) 10 Mg Capsule, 10 MG PO QID, #30 CAP Prov:RUBENS HUTCHINSON PA-C 08/05/16 Ondansetron (Ondansetron Odt) 4 Mg Tab.rapdis, 4 MG PO Q6H PRN for NAUSEA AND/OR VOMITING, #10 TAB Prov:TRINIDAD WILLIS PA-C 06/12/16 Dicyclomine HCl (Dicyclomine HCl) 10 Mg Capsule, 10 MG PO BID, #20 CAP Prov:TRINIDAD WILLIS PA-C 06/12/16 Acetaminophen* (Tylophen*) 500 Mg Capsule, 1 CAP PO Q6H PRN for PAIN AND OR ELEVATED TEMP, #15 CAP Prov:SANCHEZ CASTELLANOS MD 04/28/16 Azithromycin* (Zithromax*) 250 Mg Tablet, 250 MG PO .ZPACK DIRECTED, #6 TAB TAKE 500 MG (2 TABS) THE FIRST DAY THEN 250 MG (1 TAB) DAYS 2-5 Prov:SANCHEZ CASTELLANOS MD 04/28/16 Diphenhydramine Hcl* (Benadryl*) 25 Mg Cap, 25 MG PO Q6, #30 CAP Prov:KRISTYN PERKINS PA-C 04/24/16 Permethrin* (Elimite*) 5% Cr, 1 APPLIC TOP ONCE, #2 TUB Leave cream on for 8 hours. Apply from the neck down to your toes. You may repeat applying the cream14 days after initial treatment if symptoms do not improve. Deje la crema en 8 horas. Aplicar desde el thad hasta los dedos del pie. Se puede repetir aplicando los cream14 haskins despus del tratamiento inicial si los sntomas no mejoran. Prov:KRISTYN PERKINS PA-C 04/24/16 Benzonatate* (Tessalon Perle*) 100 Mg Capsule, 100 MG PO Q8H PRN for COUGH, #20 CAP Prov:KRISTYN PERKINS PA-C 04/24/16 Albuterol Sulfate* (Proair HFA*) 8.5 Gm Hfa.aer.ad, 2 PUFF INH Q4, #1 INHALER Prov:KRISTYN PERKINS PA-C 04/24/16 Prednisone* (Prednisone*) 20 Mg Tab, 40 MG PO DAILY for 4 Days, TAB Prov:KRISTYN PERKINS PA-C 04/24/16 Naproxen* (Naprosyn*) 500 Mg Tablet, 500 MG PO BID PRN for PAIN AND/OR INFLAMMATION, #20 TAB Prov:SKINNY PATEL PA-C 01/11/16 Tramadol HCl (Tramadol HCl) 50 Mg Tablet, 50 MG PO Q6 PRN for PAIN, #10 TAB Prov:SKINNY PATEL PA-C 01/11/16 Tramadol Hcl* (Ultram*) 50 Mg Tablet, 100 MG PO Q6H PRN for PAIN, #20 TAB Prov:CALVIN SWEET NP 11/26/15 Pantoprazole* (Pantoprazole*) 40 Mg Tablet.dr, 40 MG PO BID@06,18 for 30 Days Prov:CALVIN SWEET NP 11/26/15 Hydroxyzine Hcl* (Hydroxyzine Hcl*) 25 Mg Tablet, 25 MG PO Q8H PRN for ITCHING, #15 TAB Prov:IVAN WAN DO 11/17/15 Reported Medications Ondansetron Hcl* (Ondansetron Hcl*) 4 Mg Tablet, 4 MG PO TID PRN for NAUSEA AND OR VOMITING, TAB 11/20/15 Allergies Allergies: Coded Allergies: Penicillins (Verified Allergy, Unknown, swelling, 06/12/16) PMhx/Soc History of Surgery: Yes (Gallbladder, appendectomy, [id number], hernia repair.) Anesthesia Reaction: No Hx Neurological Disorder: No Hx Respiratory Disorders: No Hx Cardiac Disorders: No Hx Psychiatric Problems: No Hx Miscellaneous Medical Probl: No Hx Alcohol Use: No Hx Substance Use: No Hx Tobacco Use: No Smoking Status: Never smoker FmHx Family History: No diabetes Physical Exam Vitals Vital Signs Date Temp Pulse Resp B/P (MAP) Pulse Ox O2 O2 Flow FiO2 Time Delivery Rate 07/14/18 98.2 64 17 125/79 100 Room Air 07:58 (94) 07/14/18 98.1 86 18 118/65 98 06:35 (82) Physical Exam Airway is intact Bilateral breath sounds Strong distal pulses No obvious deficits General: anxious Head: Normocephalic, atraumatic Eyes: Pupils equally reactive, EOM intact ENT: Moist mucous membranes Neck: Supple, no lymphadenopathy, No midline tenderness, deformities, step-offs to the cervical spine, full active and passive range of motion without midline pain. Respiratory: Lungs clear bilaterally, no distress, no chest wall tenderness, no crepitus Cardiovascular: RRR, no murmurs, rubs, or gallops Abdominal: Soft, non-tender, non-distended, no peritoneal signs, pelvis is stable : Deferred MSK: No edema, no unilateral swelling, 5/5 strength, no midline tenderness deformities or step-offs to the thoracolumbar spine. There is nonspecific soft tissue tenderness to the left wrist and hand without snuffbox tenderness. The patient has strong distal pulses and strong radial and ulnar pulses. No limit to hand grasp. Strong strength and no bony abnormalities to the forearm elbow or humerus. Patient has mild soft tissue tenderness to left knee but full active and passive range of motion without evidence of significant abrasion. No ligamentous instability. Somewhat limited exam given the patient's body habitus. Neurologic: Alert and oriented, moving all extremities, normal speech, no focal weakness, no cerebellar signs Skin: No ecchymoses or bruising to the chest or abdomen Psych: Normal mood Results 24 hrs Current Medications Medications Dose Sig/Kanwal Start Time Status Last (Trade) Ordered Route PRN Stop Time Admin Dose Reason Admin 1,000 mg ONCE ONCE 07/14/18 DC 07/14/18 Acetaminophen PO 07:00 07/14/18 06:46 (Tylenol 07:01 Tab) Procedures/MDM EKG, MONITORS, & DIAGNOSTIC IMAGING: XR left wrist IMPRESSION: 1. No acute fractures dislocations or foreign bodies. 2. Note that distal aspects of the fingers were not imaged. XR left hand IMPRESSION: No evidence acute fractures dislocations or erosions. RPTAT:AAJJ CTB IMPRESSION: 1. Mild chronic bilateral maxillary sinusitis. 2. No evidence of intracranial masses hemorrhages or midline shift. RPTAT:AAJJ XR knee left IMPRESSION: No acute osseous abnormality or malalignment. Tiny radiodense focus anterior to the proximal tibia most likely a tiny phlebolith, assuming no overlying penetrating injury to suggest a tiny foreign body, which could be correlated clinically. RPTAT: HSAF MEDICAL DECISION MAKING: The patient had a mechanical slip and fall. She has head injury with possible LOC. CT imaging of the head would be appropriate. The patient does not meet high-risk criteria and based on NEXUS cervical spine criteria there is no indication for cervical spine imaging at this time. Patient has hand pain and knee pain. She has no snuffbox tenderness and I do not believe that the patient has signs or symptoms concerning for scaphoid fracture. X-ray imaging of the hand wrist and knee would be appropriate. Low pretest probability for fracture or acute injury. ER COURSE: * Patient was treated with nonnarcotic pain medication with mild improvement. Diagnostic imaging is unremarkable. The patient is ambulatory with a trial of ambulation in the emergency room setting. * Patient will be safely discharged with expectant management of close head injury precautions. Return precautions were discussed and understood. CONSULTATION: None DISPOSITION PLAN: The patient does not have an identifiable emergent medical condition that warrants inpatient hospitalization at this time. The patient is deemed safe for discharge with outpatient follow-up. We discussed follow up with the patient's primary care doctor within 24 to 48 hours as needed. We also discussed return to the emergency room for worsening symptoms or worsening condition. Outpatient referral: None required Discharge Medications: Motrin Departure Diagnosis: Primary Impression: Closed head injury Encounter type: initial encounter Qualified Codes: S09.90XA - Unspecified injury of head, initial encounter Additional Impressions: Contusion of left hand Encounter type: initial encounter Qualified Codes: S60.222A - Contusion of left hand, initial encounter Contusion of left knee Encounter type: initial encounter Qualified Codes: S80.02XA - Contusion of left knee, initial encounter Morbid obesity Condition: Stable EVELYN CRUZ MD Jul 14, 2018 07:43
[2018-07-14] MEDS ORDERED: IBUP800T48 PO (07:54)
[2018-07-14 07:58] VITALS: BP 125/79; PULSE 64; RESP 17
== END 2018-07-14 08:00 | disposition home or self-care (01) ==
LOC: E/R 06:30
DX: S09.90XA Unspecified injury of head, initial encounter (principal); R40.2142 Coma scale, eyes open, spontaneous, at arrival to emergency department; R40.2362 Coma scale, best motor response, obeys commands, at arrival to emergency department; R40.2252 Coma scale, best verbal response, oriented, at arrival to emergency department; S60.222A Contusion of left hand, initial encounter; S80.02XA Contusion of left knee, initial encounter; E66.01 Morbid (severe) obesity due to excess calories; W18.39XA Other fall on same level, initial encounter; Y92.9 Unspecified place or not applicable
CPT/HCPCS: 70450; 73110; 73130; 73562; Z7502; Z7610

== ENCOUNTER 2018-09-13 10:31 | Emergency (ER) | payer MEDICAID ==
[~2018-09-13] VITALS: Ht 157.5 cm; Wt 122.6 kg
[~2018-09-13 10:31] MED LIST changes: +ACET325T33 PO; +IBUP800T48 PO
[2018-09-13 10:36] VITALS: Ht 157.5 cm; Wt 122.6 kg
[2018-09-13] MEDS ORDERED: SOD CHLORIDE 0.9% 1,000 ML IV STA (11:01)
[2018-09-13] MEDS ORDERED: ONDANSETRON 4 MG INJ IV STA (11:01)
[2018-09-13] MEDS ORDERED: MECLIZINE 12.5 MG TAB PO ONE (11:30)
[2018-09-13] MEDS ORDERED: ONDANSETRON (ODT) 4 MG TAB ODT STA (14:06)
--- NOTE | 2018-09-13 14:17 | ERD ---
ER Documentation Chief Complaint Chief Complaint pt took norco x 2 - been vomittinn and felt dizzy after HPI The patient was recently seen and labs ordered by the PA The patient is a 38-year-old female, presenting to the ER because of nausea, vomiting, dizziness began around 7 AM in the morning. She took a [place] last night 9 PM, and again 4 AM this morning for her pain. She never had [place] previously. She denies fever, chills, neck pain, chest pain, dyspnea, abdominal pain, vomiting, dysuria, diarrhea. She does not smoke nor drink, she has a lot of stress, currently unemployed for about a month When the PA discharge, she complained that she is suicidal and has a plan to cut herself She was hospitalized psychiatric [facility] about 10 years ago Past medical history: Bipolar Surgical history: Ovarian cyst, right inguinal herniorrhaphy, appendectomy, cholecystectomy ROS All systems reviewed and are negative except as per history of present illness. Medications Home Meds Active Scripts Acetaminophen* (Tylenol*) 325 Mg Tablet, 2 TAB PO Q8 PRN for PAIN AND OR E LEVATED TEMP, #20 TAB Prov:JR WHALEY PA-C 09/13/18 Ondansetron (Ondansetron Odt) 4 Mg Tab.rapdis, 4 MG PO Q6H PRN for NAUSEA AND/OR VOMITING, #10 TAB Prov:JR WHALEY PA-C 09/13/18 Ciprofloxacin Hcl* (Ciprofloxacin Hcl*) 500 Mg Tablet, 500 MG PO BID for 7 Days, TAB Prov:JR WHALEY PA-C 09/13/18 Discontinued Reported Medications Ondansetron Hcl* (Ondansetron Hcl*) 4 Mg Tablet, 4 MG PO TID PRN for NAUSEA AND OR VOMITING, TAB 11/20/15 Discontinued Scripts Ibuprofen* (Motrin*) 800 Mg Tab, 800 MG PO Q6H PRN for PAIN AND OR ELEVATED TEMP, #30 TAB Prov:EVELYN CRUZ MD 07/14/18 Docusate Sodium* (Colace*) 100 Mg Capsule, 100 MG PO TID, #30 CAP Prov:TRINIDAD WILLIS PA-C 07/14/18 Polyethylene Glycol* (Miralax*) 17 Gm Powd.pack, 17 GM PO DAILY, #7 Prov:TRINIDAD WILLIS PA-C 07/14/18 Naproxen* (Naprosyn*) 500 Mg Tablet, 500 MG PO BID PRN for PAIN AND/OR INFLAMMATION, #30 TAB Prov:TRINIDAD WILLIS PA-C 07/14/18 Phenazopyridine Hcl* (Pyridium*) 100 Mg Tab, 100 MG PO TID PRN for URINARY PAIN, #8 TAB Prov:PRIETO GALLEGO 06/23/17 Ciprofloxacin Hcl* (Ciprofloxacin Hcl*) 500 Mg Tablet, 500 MG PO BID for 10 Days, TAB Prov:PRIETO GALLEGO 06/23/17 Ondansetron (Ondansetron Odt) 4 Mg Tab.rapdis, 4 MG PO Q6H PRN for NAUSEA AND/OR VOMITING, #20 TAB Prov:EVELYN CRUZ MD 06/10/17 Acetamin/Butalbital/Caffeine* (Fioricet*) [id number] Tab, 1 TAB PO Q6H PRN for PAIN, #20 TAB Prov:EVELYN CRUZ MD 06/10/17 Acetaminophen with Codeine (Acetaminophen-Cod #3 Tablet) 1 Each Tablet, 1 TAB PO Q6H PRN for PAIN, #10 TAB Prov:SANCHEZ CASTELLANOS MD 05/06/17 Sulfamethoxazole/Trimethoprim* (Bactrim Ds* Tablet) 1 Each Tablet, 1 TAB PO BID for 5 Days, TAB Prov:SANCHEZ CASTELLANOS MD 05/06/17 Tramadol Hcl* (Ultram*) 50 Mg Tablet, 50 MG PO Q6H PRN for PAIN, #10 TAB Prov:GERARDO MAJANO MD 04/27/17 Nitrofurantoin Monohyd Macrocr* (Macrobid*) 100 Mg Capsr, 100 MG PO BID for 7 Days, CAP Prov:GISELE CHRISTINA NP 08/27/16 Acetaminophen* (Tylophen*) 500 Mg Capsule, 1 CAP PO Q6H PRN for PAIN AND OR ELEVATED TEMP, #20 CAP Prov:GISELE CHRISTINA NP 08/27/16 Tramadol HCl (Tramadol HCl) 50 Mg Tablet, 50 MG PO Q6 PRN for PAIN, #20 TAB Prov:GISELE CHRISTINA NP 08/27/16 Diphenhydramine Hcl* (Benadryl*) 25 Mg Cap, 25 MG PO Q6, #30 CAP Prov:RUBENS HUTCHINSONC 08/05/16 Acetaminophen* (Tylophen*) 500 Mg Capsule, 1 CAP PO Q6H PRN for PAIN AND OR ELEVATED TEMP, #30 CAP Prov:RUBENS HUTCHINSON PA-C 08/05/16 Electrolyte,Oral (Pedialyte) 1,000 Ml Solution, 100 ML PO Q6 PRN for DIARRHEA, #1000 ML Prov:RUBENS HUTCHINSON PA-C 08/05/16 Ondansetron Hcl* (Zofran*) 4 Mg Tablet, 4 MG PO Q6H for NAUSEA AND/OR VOMITING, #30 TAB Prov:RUBENS HUTCHINSON PA-C 08/05/16 Dicyclomine HCl (Dicyclomine HCl) 10 Mg Capsule, 10 MG PO QID, #30 CAP Prov:RUBENS HUTCHINSON PA-C 08/05/16 Ondansetron (Ondansetron Odt) 4 Mg Tab.rapdis, 4 MG PO Q6H PRN for NAUSEA AND/OR VOMITING, #10 TAB Prov:TRINIDAD WILLIS PA-C 06/12/16 Dicyclomine HCl (Dicyclomine HCl) 10 Mg Capsule, 10 MG PO BID, #20 CAP Prov:TRINIDAD WILLIS PA-C 06/12/16 Acetaminophen* (Tylophen*) 500 Mg Capsule, 1 CAP PO Q6H PRN for PAIN AND OR ELEVATED TEMP, #15 CAP Prov:SANCHEZ CASTELLANOS MD 04/28/16 Azithromycin* (Zithromax*) 250 Mg Tablet, 250 MG PO .PEARL DIRECTED, #6 TAB TAKE 500 MG (2 TABS) THE FIRST DAY THEN 250 MG (1 TAB) DAYS 2-5 Prov:SANCHEZ CASTELLANOS MD 04/28/16 Diphenhydramine Hcl* (Benadryl*) 25 Mg Cap, 25 MG PO Q6, #30 CAP Prov:KRISTYN PERKINS PA-C 04/24/16 Permethrin* (Elimite*) 5% Cr, 1 APPLIC TOP ONCE, #2 TUB Leave cream on for 8 hours. Apply from the neck down to your toes. You may repeat applying the cream14 days after initial treatment if symptoms do not improve. Deje la crema en 8 horas. Aplicar desde el thad hasta los dedos del pie. Se puede repetir aplicando los cream14 haskins despus del tratamiento inicial si los sntomas no mejoran. Prov:KRISTYN PERKINS PA-C 04/24/16 Benzonatate* (Tessalon Perle*) 100 Mg Capsule, 100 MG PO Q8H PRN for COUGH, #20 CAP Prov:KRISTYN PERKINS PA-C 04/24/16 Albuterol Sulfate* (Proair HFA*) 8.5 Gm Hfa.aer.ad, 2 PUFF INH Q4, #1 INHALER Prov:KRISTYN PERKINS PA-C 04/24/16 Prednisone* (Prednisone*) 20 Mg Tab, 40 MG PO DAILY for 4 Days, TAB Prov:KRISTYN PERKINS PA-C 04/24/16 Naproxen* (Naprosyn*) 500 Mg Tablet, 500 MG PO BID PRN for PAIN AND/OR INFLAMMATION, #20 TAB Prov:SKINNY PATEL PA-C 01/11/16 Tramadol HCl (Tramadol HCl) 50 Mg Tablet, 50 MG PO Q6 PRN for PAIN, #10 TAB Prov:SKINNY PATEL PA-C 01/11/16 Tramadol Hcl* (Ultram*) 50 Mg Tablet, 100 MG PO Q6H PRN for PAIN, #20 TAB Prov:CALVIN SWEET NP 11/26/15 Pantoprazole* (Pantoprazole*) 40 Mg Tablet.dr, 40 MG PO BID@06,18 for 30 Days Prov:CALVIN SWEET NP 11/26/15 Hydroxyzine Hcl* (Hydroxyzine Hcl*) 25 Mg Tablet, 25 MG PO Q8H PRN for ITCHING, #15 TAB Prov:IVAN WAN DO 11/17/15 Allergies Allergies: Coded Allergies: Penicillins (Verified Allergy, Unknown, swelling, 09/13/18) PMhx/Soc History of Surgery: Yes (Gallbladder, appendectomy, [id number], hernia repair.) Anesthesia Reaction: No Hx Neurological Disorder: No Hx Respiratory Disorders: No Hx Cardiac Disorders: No Hx Psychiatric Problems: No Hx Miscellaneous Medical Probl: Yes (hypothyroidism) Hx Alcohol Use: No Hx Substance Use: No Hx Tobacco Use: No Smoking Status: Never smoker Physical Exam Vitals Vital Signs Date Temp Pulse Resp B/P (MAP) Pulse Ox O2 O2 Flow FiO2 Time Delivery Rate 09/13/18 98.0 65 20 124/98 97 Room Air 14:24 (107) 09/13/18 97.4 81 20 117/71 96 10:36 (86) Physical Exam Const: No acute distress. Head: Atraumatic. Eyes: Normal Conjunctiva. ENT: Normal External Ears, Nose and Mouth. Neck: Full range of motion. No meningismus. Resp: Clear to auscultation bilaterally. Cardio: Regular rate and rhythm. Abd: Soft, non distended, normal bowel sounds, non tender. Skin: No petechiae or rashes. Back: No midline or flank tenderness. Ext: No cyanosis, or edema. Neur: Awake and alert. No focal deficit Psych: Suicidal Result Diagram: 09/13/18 1118 09/13/18 1118 Results 24 hrs Laboratory Tests Test 09/13/18 11:18 09/13/18 11:23 White Blood Count 10.2 10^3/ul Red Blood Count 5.03 10^6/ul Hemoglobin 13.4 g/dl Hematocrit 41.1 % Mean Corpuscular Volume 81.7 fl Mean Corpuscular Hemoglobin 26.6 pg Mean Corpuscular Hemoglobin Concent 32.6 g/dl Red Cell Distribution Width 14.2 % Platelet Count 302 10^3/UL Mean Platelet Volume 9.7 fl Immature Granulocytes % 0.400 % Neutrophils % 81.9 % Lymphocytes % 11.3 % Monocytes % 5.9 % Eosinophils % 0.1 % Basophils % 0.4 % Nucleated Red Blood Cells % 0.0 /100WBC Immature Granulocytes # 0.040 10^3/ul Neutrophils # 8.4 10^3/ul Lymphocytes # 1.2 10^3/ul Monocytes # 0.6 10^3/ul Eosinophils # 0.0 10^3/ul Basophils # 0.0 10^3/ul Nucleated Red Blood Cells # 0.0 10^3/ul Urine Color YELLOW Urine Clarity SLIGHTLY CLOUDY Urine pH 5.0 Urine Specific [place] 1.025 Urine Ketones NEGATIVE mg/dL Urine Nitrite NEGATIVE mg/dL Urine Bilirubin NEGATIVE mg/dL Urine Urobilinogen NEGATIVE mg/dL Urine Leukocyte Esterase 1+ Magan/ul Urine Microscopic RBC 78 /HPF Urine Microscopic WBC 13 /HPF Urine Squamous Epithelial Cells FEW /HPF Urine Bacteria FEW /HPF Urine Mucus MODERATE /HPF Urine Hemoglobin 3+ mg/dL Urine Glucose NEGATIVE mg/dL Urine Total Protein NEGATIVE mg/dl Sodium Level 141 mmol/L Potassium Level 4.6 mmol/L Chloride Level 107 mmol/L Carbon Dioxide Level 22 mmol/L Anion Gap 12 Blood Urea Nitrogen 13 mg/dl Creatinine 0.71 mg/dl Est Glomerular Filtrat Rate mL/min > 60 mL/min Glucose Level 114 mg/dl Calcium Level 9.5 mg/dl Total Bilirubin 1.0 mg/dl Direct Bilirubin 0.00 mg/dl Indirect Bilirubin 1.0 mg/dl Aspartate Amino Transf (AST/SGOT) 123 IU/L Alanine Aminotransferase (ALT/SGPT) 150 IU/L Alkaline Phosphatase 99 IU/L Total Protein 7.6 g/dl Albumin 4.4 g/dl Globulin 3.20 g/dl Albumin/Globulin Ratio 1.37 POC Beta HCG, Qualitative NEGATIVE Current Medications Medications Dose Sig/Kanwal Start Time Status Last (Trade) Ordered Route PRN Stop Time Admin Dose Reason Admin Sodium 1,000 ml @ Q1H STAT 09/13/18 DC 09/13/18 Chloride 1,000 mls/hr IV 11:01 09/13/18 11:12 12:00 Ondansetron 4 mg ONCE STAT 09/13/18 DC 09/13/18 HCl (Zofran IV 11:01 09/13/18 11:12 Inj) 11:03 Meclizine 25 mg ONCE ONCE 09/13/18 DC 09/13/18 HCl PO 11:30 09/13/18 11:12 (Antivert) 11:31 Ondansetron 4 mg ONCE STAT 09/13/18 DC 09/13/18 HCl (Zofran ODT 14:06 09/13/18 14:17 Odt) 14:07 1 tab ONCE ONCE 09/13/18 DC 09/13/18 Trimethoprim/ PO 15:00 09/13/18 15:10 15:01 Sulfamethoxaz ole (Bactrim (Ds)) Procedures/[place] [address] Radiology Main Line: [phone] DIAGNOSTIC IMAGING REPORT Patient: SIERRA RAMOS : 1980 Age: 38 Sex: F MR #: [id number] DOS: 09/13/18 1101 Ordering MD: HOSSEIN WHALEY PA-C Location: [facility] Room/Bed: PROCEDURE: CT Brain without. CLINICAL INDICATION: Headache TECHNIQUE: A CT of the brain was performed utilizing axial sections from the skull base through the vertex without contrast. The scan was reviewed in soft tissue brain and high frequency resolution bone algorithm windows. Images were reviewed on a high-resolution PACS workstation. The exam CTDI = 35.32 mGy, and the DLP = 554.95 mGy-cm. One or more of the following dose reduction techniques were used: Automated exposure control, adjustment of the mA and / or kV according to patient size, or use of iterative reconstruction technique. DICOM images are available. COMPARISON: CT BRAIN 07/14/2018 FINDINGS: The ventricles are normal in size and midline in position. There is no intracranial hemorrhage, midline shift, or mass effect. No abnormal extra-axial fluid collections are identified. The valdes-white differentiation is well preserved. The basal cisterns are patent. The posterior fossa is unremarkable. The visualized portions of the orbits are unremarkable. The paranasal sinuses and mastoid air cells are clear. No calvarial fracture or abnormality are identified. The soft tissues are unremarkable. IMPRESSION: Unremarkable CT of the brain. No significant interval change. RPTAT: HH .Krystal Judge MD, Date Time Electronically viewed and signed by .Krystal Judge MD, MD on 09/13/2018 12:15 .G/ CC: JR WHALEY PA-C [phone] MEDICAL MAKING DECISION: The patient is a 38-year-old female, presenting with acute suicidal ideation, acute cystitis, depression She was treated with 1 L normal saline, Antivert 25 mg p.o. for dizziness, Zofran IV for nausea by the BROCK. She was treated with Bactrim DS for acute cystitis The differential diagnoses considered include but are not limited to decompensated psychiatric illness, anxiety attack, panic attack, depression Departure Diagnosis: Primary Impression: Suicidal ideations Additional Impressions: UTI (urinary tract infection) Depression Transaminitis Condition: Stable Patient Instructions: Understanding Urinary Tract Infections (UTIs) Additional Instructions: She is cleared for psychiatric evaluation and admission GERARDO MAJANO MD Sep 13, 2018 14:17
[2018-09-13 14:24] VITALS: BP 124/98; PULSE 65; RESP 20
[2018-09-13] MEDS ORDERED: TRIMETHOPRIM/SULFAMETHOX (DS) TAB PO ONE (15:00)
--- NOTE | 2018-09-13 22:18 | PSY ---
Date/Time of Note Date/Time of Note DATE: 09/13/18 TIME: 22:17 Psychiatric Subjective Eval Consent Pt consented to telemedicine: Yes Subjective Evaluation Patient location: emergency Chief Complaint: pt took norco x 2 - been vomittinn and felt dizzy after Medical history Problems Medical Problems: (1) Abdominal pain Status: Acute (2) Abdominal pain Status: Acute (3) Abdominal pain Status: Acute (4) Acute anxiety Status: Acute (5) Acute kidney injury Status: Acute (6) Back pain Status: Acute (7) Chest pain Status: Acute (8) Closed head injury Status: Acute (9) Closed head injury Status: Acute (10) Contusion of left hand Status: Acute (11) Contusion of left hand Status: Acute (12) Contusion of left knee Status: Acute (13) Contusion of left knee Status: Acute (14) Contusion, hand Status: Acute (15) Cough Status: Acute (16) Depression Status: Acute (17) Dysuria Status: Acute (18) Dysuria Status: Acute (19) Epistaxis Status: Acute (20) Excessive vaginal bleeding Status: Acute (21) Gall stones Status: Acute (22) Headache Status: Acute (23) Headache Status: Acute (24) Headache Status: Acute (25) Morbid obesity Status: Acute (26) Nausea and vomiting Status: Acute (27) Neck muscle spasm Status: Acute (28) Neck strain Status: Acute (29) Palpitations Status: Acute (30) Paresthesias Status: Acute (31) Pyelonephritis Status: Acute (32) Pyelonephritis Status: Acute (33) Suicidal ideations Status: Acute (34) Syncope Status: Acute (35) Transaminitis Status: Acute (36) Transaminitis Status: Acute (37) Upper respiratory infection Status: Acute (38) UTI (urinary tract infection) Status: Acute (39) UTI (urinary tract infection) Status: Acute (40) Vaginal bleeding Status: Acute (41) Vaginal bleeding in pediatric patient Status: Acute (42) Vomiting and diarrhea Status: Acute (43) Wheezing Status: Acute Allergies: Coded Allergies: Penicillins (Verified Allergy, Unknown, swelling, 09/13/18) Psychiatric Objective Eval Mental Status Examination: Laboratory Results Laboratory Tests Test 09/13/18 11:18 09/13/18 11:23 White Blood Count 10.2 10^3/ul Red Blood Count 5.03 10^6/ul Hemoglobin 13.4 g/dl Hematocrit 41.1 % Mean Corpuscular Volume 81.7 fl Mean Corpuscular Hemoglobin 26.6 pg Mean Corpuscular Hemoglobin Concent 32.6 g/dl Red Cell Distribution Width 14.2 % Platelet Count 302 10^3/UL Mean Platelet Volume 9.7 fl Immature Granulocytes % 0.400 % Neutrophils % 81.9 % Lymphocytes % 11.3 % Monocytes % 5.9 % Eosinophils % 0.1 % Basophils % 0.4 % Nucleated Red Blood Cells % 0.0 /100WBC Immature Granulocytes # 0.040 10^3/ul Neutrophils # 8.4 10^3/ul Lymphocytes # 1.2 10^3/ul Monocytes # 0.6 10^3/ul Eosinophils # 0.0 10^3/ul Basophils # 0.0 10^3/ul Nucleated Red Blood Cells # 0.0 10^3/ul Urine Color YELLOW Urine Clarity SLIGHTLY CLOUDY Urine pH 5.0 Urine Specific [place] 1.025 Urine Ketones NEGATIVE mg/dL Urine Nitrite NEGATIVE mg/dL Urine Bilirubin NEGATIVE mg/dL Urine Urobilinogen NEGATIVE mg/dL Urine Leukocyte Esterase 1+ Magan/ul Urine Microscopic RBC 78 /HPF Urine Microscopic WBC 13 /HPF Urine Squamous Epithelial Cells FEW /HPF Urine Bacteria FEW /HPF Urine Mucus MODERATE /HPF Urine Hemoglobin 3+ mg/dL Urine Glucose NEGATIVE mg/dL Urine Total Protein NEGATIVE mg/dl Sodium Level 141 mmol/L Potassium Level 4.6 mmol/L Chloride Level 107 mmol/L Carbon Dioxide Level 22 mmol/L Anion Gap 12 Blood Urea Nitrogen 13 mg/dl Creatinine 0.71 mg/dl Est Glomerular Filtrat Rate mL/min > 60 mL/min Glucose Level 114 mg/dl Calcium Level 9.5 mg/dl Total Bilirubin 1.0 mg/dl Direct Bilirubin 0.00 mg/dl Indirect Bilirubin 1.0 mg/dl Aspartate Amino Transf (AST/SGOT) 123 IU/L Alanine Aminotransferase (ALT/SGPT) 150 IU/L Alkaline Phosphatase 99 IU/L Total Protein 7.6 g/dl Albumin 4.4 g/dl Globulin 3.20 g/dl Albumin/Globulin Ratio 1.37 Salicylates Level < 1.0 mg/dl Urine Opiates Screen Positive Acetaminophen Level < 10.0 ug/ml Urine Barbiturates Negative Urine Amphetamines Screen Negative Urine Benzodiazepines Screen Negative Urine Cocaine Screen Negative Urine Cannabinoids Negative Ethyl Alcohol Level < 10.0 mg/dl POC Beta HCG, Qualitative NEGATIVE Assessment and Plan Recommendation/Plan Multiple antipsychotics: No Discharge Disposition: Psychiatric inpatient Legal Status: Voluntary Assessment Additional comments: IDENTIFYING INFORMATION: 38 year old female patient who is currently located at the hospital and for whom psychiatric consultation was requested. SOURCES OF INFORMATION: The patient who appears to be reliable and the medical records; the nursing staff. CHIEF COMPLAINT: "depressed". HISTORY OF PRESENT ILLNESS: The patient was interviewed via telemedicine in the presence of and under the supervision of nursing staff of the hospital. The consent to conducting this interview via telemedicine was obtained by the nursing staff at the hospital. Dr. Macias reports that the patient presented with SI with plan to cut herself. Is not on a 5150 hold. The patient reports having depressed mood, anhedonia, insomnia, fatigue, SI with plan to cut self, hopelessness, helplessness. The patient denies having AH, VH, delusions. The patient denies using alcohol heavily or regularly. The patient denies using any other substances. In terms of past psychiatric history, the patient reports having a history of past psychiatric hospitalizations. PAST MEDICAL HISTORY: hypothyroidism. CURRENT MEDICATIONS: levothyroxine. ALLERGIES TO MEDICATIONS: NKDA. LABORATORY TESTS: CBC unremarkable, CMP with AST 123, with ALT of 150 UDS positive for opiates, alcohol level rule out detected SOCIAL HISTORY: single, no kids, not employed, REVIEW OF SYSTEMS: Constitutional (e.g., fever, weight loss): negative; Eyes, Ears, Nose, Mouth, Throat: negative; Cardiovascular: negative; Respiratory: negative; Gastrointestinal: negative; Genitourinary: negative; Musculoskeletal: negative; Integumentary (skin and/or breast): negative; Neurological: negative; Psychiatric: as per HPI; Endocrine: negative; Hematologic/Lymphatic: negative; Allergic/Immunologic: negative. MENTAL STATUS EXAMINATION: General Appearance and Behavior: Calm, cooperative with the interview, pleasant with the current interviewer, makes fair eye contact, fairly groomed, no abnormal movements noted, Speech: Regular rate, regular rhythm, normal latency, normal volume, somewhat decreased amount, Flow of thought: sequential, logical, goal-directed, Content of thought: no auditory hallucinations, no visual hallucinations, no delusions, positive for suicidal ideation; no homicidal ideation, Mood: "depressed", Affect: dysthymic, dysphoric, not reactive, Attention: normal based on the interview, Insight: fair, Judgment: poor, Memory: normal based on the interview, Sensorium: alert and oriented to person, place and date. ASSESSMENT: The patient's presentation and history are consistent with the diagnosis of unspecified mood disorder. The patient presents in a major depressive episode in the context of medication noncompliance, psychosocial stressors and substance use. No evidence of psychosis, han, hypomania on exam. PLAN: - Medication management: Would start Ativan 1 mg by mouth twice a day as needed for anxiety. Would start Celexa 20 mg by mouth every morning. Would start haloperidol 5 mg IM PRN severe agitation q4 hours. Would start diphenhydramine 50 mg IM PRN severe agitation q4 hours. Would start lorazepam 2 mg IM PRN severe agitation q4 hours Will defer to the inpatient psychiatry team for other medication changes. - Labs: No other laboratory tests are needed at this time. - Psychotherapy: Provided supportive psychotherapy and psychoeducation. - Disposition: Would recommend voluntary admission to the inpatient psychiatric unit as the patient would benefit from such an intervention so long as the patient has been cleared medically for admission to psychiatry. The patient is agreeable to being hospitalized in the inpatient psychiatric unit at this time. Would place on suicide precautions. I called the emergency room physician who is taking care of the patient to discuss about the above plan but the emergency room physician is not available at this time. I left my phone number with the hospital staff requesting a callback so that the emergency room physician can reach me when they become available. RAUL JOLLEY MD Sep 13, 2018 22:18
[2018-09-14] MEDS ORDERED: CITALOPRAM 20 MG TAB PO SCH (09:00)
--- NOTE | 2018-09-14 10:00 | EN ---
Date/Time of Note Date/Time of Note DATE: 09/14/18 TIME: 09:59 ER Progress Note Patient signed out to me pending reevaluation. Patient was initially placed on voluntary psychiatric hold and was also being treated for urinary tract infection. Patient stated she is not suicidal and has no plans of killing or hurting herself but stated she wanted to go to the psychiatric facility that was recommended to her, but wanted to go on her own and no longer felt like waiting in the emergency department. She understood she has a bladder infection and agreed to go immediately to the pharmacy to get her antibiotics and other medications filled. Patient's vital signs were normal and she looks well at this time, she is calm and cooperative and does not appear or act suicidal homicidal. Patient feels much better at this time, and vital signs are normal, symptoms have improved. I did give strict instructions to return to the ED if symptoms continue or worsen, patient will otherwise follow-up with primary care physician. Patient understood instructions and agreed to plan. Disclaimer: Inadvertent spelling and grammatical errors are likely due to EHR/dictation software use and do not reflect on the overall quality of patient care. Also, please note that the electronic time recorded on this note does not necessarily reflect the actual time of the patient encounter. DANETTE REAVES MD Sep 14, 2018 10:00
== END 2018-09-13 14:00 | disposition home or self-care (01) ==
LOC: FTE 10:31 → E/R 14:00
DX: F32.9 Major depressive disorder, single episode, unspecified (principal); E03.9 Hypothyroidism, unspecified; N39.0 Urinary tract infection, site not specified; R74.0 Nonspecific elevation of levels of transaminase and lactic acid dehydrogenase [LDH]
CPT/HCPCS: 36415; 70450; 80053; 80307; 81001; 81025; 85025; 87086; 96361; 96374; J2405; J7030; Z7502; Z7610